=== PATIENT | male | born 1945 | race African-American/Black ===

== ENCOUNTER 2021-02-25 20:33 | Inpatient (IN) | payer OTHER ==
[2021-02-25] MEDS ORDERED: FUROSEMIDE 40 MG/4 ML VIAL ONE (21:43)
[2021-02-25 21:57] LABS: Absolute Lymphocytes (CBC) 0.7 K/uL (0.7-4.9); Basophils % 0.6 % (0-1.3); MPV 6.7 fL (7.6-11.3); RBC Red Blood Cell Count 4.35 M/uL (4.33-5.43)
[2021-02-25 21:59] LABS: Protime INR 1.18
--- NOTE | 2021-02-25 22:03 | RAD REPORT ---
EXAM DESCRIPTION: RAD - Chest Single View - 02/25/2021 9:45 pm CLINICAL HISTORY: Chest pain;SOB COMPARISON: No comparisons FINDINGS: Lines: None. Lungs: Diffuse prominence of the pulmonary interstitium P Pleural: No significant pleural effusions or pneumothorax. Cardiac: Cardiomegaly P Bones: No acute fractures. Other: IMPRESSION: Diffuse prominence of the pulmonary interstitium favored to represent edema, less likely multifocal pneumonia .
[2021-02-25 22:14] LABS: ALT/SGPT 56 U/L (12-78); AST/SGOT 31 U/L (15-37); Albumin 3.6 g/dL (3.4-5.0); Alkaline Phosphatase 111 U/L (45-117); BUN Blood Urea Nitrogen 32 mg/dL (7-18); Bicarbonate 31 mmol/L (21-32); Bilirubin Direct 0.3 mg/dL (0-0.2); Bilirubin Total 0.7 mg/dL (0.2-1.0); Glucose Level 108 mg/dL (74-106); Magnesium 2.5 mg/dL (1.8-2.4); NT PRO-BNP 1961 pg/mL (<450); Potassium 4.4 mmol/L (3.5-5.1); Sodium Level 144 mmol/L (136-145); Troponin (Emerg Dept Use Only) < 0.02 ng/mL (0.0-0.045)
[2021-02-25] MEDS ORDERED: ASPIRIN 81 MG CHEWABLE TABLET ONE (22:15)
--- NOTE | 2021-02-25 23:06 | EDPHYS ---
Physician Documentation [facility] Name: Sumeet Mohan Jr Age: 75 yrs Sex: Male : 1945 Arrival Date: 02/25/2021 Time: 20:39 Bed 18 Private MD: ED Physician Dylan Fernández HPI: 02/25 21:10 This 75 yrs old Black Male presents to ER via Wheelchair with complaints of Chest mh7 Tightness, Leg Swelling. 21:10 The patient or guardian reports chest pain that is located primarily in the substernal mh7 area. Onset: 1 week(s) ago. The pain does not radiate. Associated signs and symptoms: Pertinent positives: cough, lower extremity swelling, shortness of breath, Pertinent negatives: abdominal pain, diaphoresis, dizziness, headache, lower extremity pain, lightheadedness, nausea, near syncope, palpitations, recent travel, syncope, vomiting. The chest pain is described as Tightness. Duration: The patient or guardian reports multiple episodes, that are intermittent, that wax and wane, with no pattern. Modifying factors: The symptoms are alleviated by nothing. the symptoms are aggravated by activity, exertion. Severity of pain: At its worst the pain was moderate 5 day(s) ago, in the emergency department the pain has improved moderately. Historical: - Allergies: 20:53 No Known Allergies; wg - Immunization history:: Adult Immunizations up to date. - Social history:: Smoking status: Patient denies any tobacco usage or history of. ROS: 21:10 Eyes: Negative for injury, pain, redness, and discharge, ENT: Negative for injury, mh7 pain, and discharge, Neck: Negative for injury, pain, and swelling, Abdomen/GI: Negative for abdominal pain, nausea, vomiting, diarrhea, and constipation, Back: Negative for injury and pain, : Negative for injury, bleeding, discharge, and swelling, Skin: Negative for injury, rash, and discoloration, Neuro: Negative for headache, weakness, numbness, tingling, and seizure, Psych: Negative for depression, anxiety, suicide ideation, homicidal ideation, and hallucinations, Allergy/Immunology: Negative for hives, rash, and allergies, Endocrine: Negative for neck swelling, polydipsia, polyuria, polyphagia, and marked weight changes, Hematologic/Lymphatic: Negative for swollen nodes, abnormal bleeding, and unusual bruising. 21:10 Constitutional: Positive for fever, Subjective. Exam: 21:10 Constitutional: This is a well developed, well nourished patient who is awake, alert, mh7 and in no acute distress. Head/Face: Normocephalic, atraumatic. Eyes: Pupils equal round and reactive to light, extra-ocular motions intact. Lids and lashes normal. Conjunctiva and sclera are non-icteric and not injected. Cornea within normal limits. Periorbital areas with no swelling, redness, or edema. Neck: Trachea midline, no thyromegaly or masses palpated, and no cervical lymphadenopathy. Supple, full range of motion without nuchal rigidity, or vertebral point tenderness. No Meningismus. Chest/axilla: Normal chest wall appearance and motion. Nontender with no deformity. No lesions are appreciated. Cardiovascular: Regular rate and rhythm with a normal S1 and S2. No gallops, murmurs, or rubs. Normal PMI, no JVD. No pulse deficits. 21:10 Abdomen/GI: Soft, non-tender, with normal bowel sounds. No distension or tympany. No guarding or rebound. No evidence of tenderness throughout. Back: No spinal tenderness. No costovertebral tenderness. Full range of motion. Skin: Warm, dry with normal turgor. Normal color with no rashes, no lesions, and no evidence of cellulitis. 21:10 Neuro: Awake and alert, GCS 15, oriented to person, place, time, and situation. Cranial nerves II-XII grossly intact. Motor strength 5/5 in all extremities. Sensory grossly intact. Cerebellar exam normal. Normal gait. Psych: Awake, alert, with orientation to person, place and time. Behavior, mood, and affect are within normal limits. 21:10 Respiratory: mild respiratory distress is noted, Respirations: tachypnea, that is mild, Breath sounds: rales, that are moderate, are heard diffusely, rhonchi, that are mild, are scattered, Respiratory rate: 22 21:10 Musculoskeletal/extremity: Extremities: noted in the right leg and left leg: swelling, ROM: intact in all extremities, Circulation is intact in all extremities. Sensation intact. Compartment Syndrome exam of affected extremity: is normal. no pain, no numbness, no tingling, no sensation deficit, no palor, no weak pulses, Joints: All joints appear normal with full range of motion. Weight bearing: can bear weight with assistance only, uses cane, DVT Exam: no pain, no tenderness, negative Homans' sign noted on exam, no appreciated bluish discoloration, no erythema, no increased warmth, swelling. Vital Signs: 20:50 BP 138 / 90; Pulse 75; Resp 18; Temp 98.6; Pulse Ox 97% on R/A; Weight 127.01 kg; wg Height 5 ft. 8 in. (172.72 cm); Pain 0/10; 21:32 BP 135 / 75; Pulse 75; Resp 20; Pulse Ox 100% on 3 lpm NC; Pain 0/10; bc5 22:00 BP 140 / 77; Pulse 68; Resp 19; Pulse Ox 93% on 3 lpm NC; Pain 0/10; bc5 23:00 BP 125 / 85; Pulse 69; Resp 18; Pulse Ox 95% on 3 lpm NC; Pain 0/10; bc5 02/26 01:00 BP 111 / 66; Pulse 64; Resp 16; Pulse Ox 98% on 3 lpm NC; Pain 0/10; bc5 02/25 20:50 Body Mass Index 42.57 (127.01 kg, 172.72 cm) wg MDM: 02/25 23:01 Differential diagnosis: abnormal EKG, acute myocardial infarction, acute pericarditis, mh7 anxiety, coronary artery disease chest wall pain, congestive heart failure costochondritis, myocarditis, pneumonia, pneumothorax. HEART Score: History: Moderately Suspicious (1), ECG: Non specific repolarization disturbance / LBTB / PM (1), Age: > or = 65 years (2), Risk Factors: 1 or 2 risk factors (1), [Hypertension] Troponin: < or = 1 x Normal Limit (0), Total Score = 5. The patient was given aspirin in the Emergency Department. Data reviewed: vital signs, nurses notes, lab test result(s), cardiac enzymes, CBC, electrolytes, EKG, radiologic studies, plain films. Data interpreted: Pulse oximetry: on 2L(s) per nasal canula, is 97 %. Interpretation: acceptable. Counseling: I had a detailed discussion with the patient and/or guardian regarding: the historical points, exam findings, and any diagnostic results supporting the discharge/admit diagnosis, lab results, radiology results, the need for further work-up and treatment in the hospital, to return to the emergency department if symptoms worsen or persist or if there are any questions or concerns that arise at home. Response to treatment: the patient's symptoms have mildly improved after treatment. 23:06 Patient medically screened. [facility] 02/25 21:08 Order name: Basic Metabolic Panel; Complete Time: 22:44 [facility] 02/25 21:08 Order name: CBC with Diff; Complete Time: 22:44 [facility] 02/25 21:08 Order name: LFT's; Complete Time: 22:44 [facility] 02/25 21:08 Order name: Magnesium; Complete Time: 22:44 [facility] 02/25 21:08 Order name: NT PRO-BNP; Complete Time: 22:44 [facility] 02/25 21:08 Order name: PT-INR; Complete Time: 22:44 [facility] 02/25 21:08 Order name: Troponin (emerg Dept Use Only); Complete Time: 22:44 [facility] 02/25 21:08 Order name: XRAY Chest (1 view); Complete Time: 22:44 [facility] 02/25 21:09 Order name: US Extremity Venous W Compression Jorge Alberto [facility] 02/25 23:57 Order name: SARS-COV-2 RT PCR; Complete Time: 00:39 [facility] 02/25 21:08 Order name: EKG; Complete Time: 21:09 [facility] 02/25 21:08 Order name: Cardiac monitoring; Complete Time: 21:36 [facility] 02/25 21:08 Order name: EKG - Nurse/Tech; Complete Time: 21:37 [facility] 02/25 21:08 Order name: IV Saline Lock; Complete Time: 21:37 [facility] 02/25 21:08 Order name: Labs collected and sent; Complete Time: 21:37 [facility] 02/25 21:08 Order name: O2 Per Protocol; Complete Time: 21:37 [facility] 02/25 21:08 Order name: O2 Sat Monitoring; Complete Time: 21:37 [facility] Administered Medications: 21:36 Drug: Lasix (furosemide) 40 mg Route: IVP; Site: right antecubital; [facility] 02/26 01:23 Follow up: Urine output 1200 ml [facility] 02/25 21:54 Not Given (Patient Refused): morphine 2 mg IVP once; RASS on ADMIN: Combtv4, Very bc5 Agttd3, Agttd2, Rstlss1, AlertClm0, Drwsy-1, Lt Sdtn-2, Mod Sdtn-3, Dp Sdtn-4, UnArsble-5 21:54 Not Given (Patient Refused): Zofran (Ondansetron) 4 mg IVP once; over 2 minutes bc5 21:54 Drug: Aspirin Chewable Tablet 324 mg Route: PO; bc5 Disposition Summary: 02/25/21 23:06 Hospitalization Ordered Hospitalization Status: Inpatient Admission [facility] Provider: Frederic Amador [facility] Location: Telemetry/MedSur (Inpatient) [facility] Condition: Stable [facility] Problem: an acute exacerbation [facility] Symptoms: have improved [facility] Bed/Room Type: Standard [facility] Room Assignment: 209(02/26/21 00:22) Diagnosis - Unspecified combined systolic (congestive) and diastolic (congestive) heart failure [facility] Forms: - Medication Reconciliation Form [facility] - SBAR form [facility] Signatures: Dispatcher [employer] EDIL Jennifer Marmolejo RN RN Osvaldo Estrella, GAME DESIGNER/CREATIVE DIRECTOR-C GAME DESIGNER/CREATIVE DIRECTOR-Cla1 Dylan Fernández MD MD 7 Tim Husain RN Brittany Corea RN RN 5 Corrections: (The following items were deleted from the chart) 22:57 21:17 CORONAVIRUS+BRZ ordered. [facility] 02/26 00:22 02/25 23:06 [facility]
--- NOTE | 2021-02-25 23:06 | ER ---
Nurse's Notes [facility] Name: Sumeet Mohan Jr Age: 75 yrs Sex: Male : 1945 Arrival Date: 02/25/2021 Time: 20:39 Bed 18 Private MD: Diagnosis: Unspecified combined systolic (congestive) and diastolic (congestive) heart failure Presentation: 02/25 20:50 Chief complaint: Patient states: Pt states his legs have been swollen over the last few wg weeks. States they have been feeling warm to the touch and has a hx of blood clots. Pt denies SOB, CP, N/V, dizziness, Abd pain. Coronavirus screen: Vaccine status: Patient reports receiving the 2nd dose of the covid vaccine. Date December 2020 At this time, the client does not indicate any symptoms associated with coronavirus-19. Ebola Screen: Patient negative for fever greater than or equal to 101.5 degrees Fahrenheit, and additional compatible Ebola Virus Disease symptoms Patient denies exposure to infectious person. Patient denies travel to an Ebola-affected area in the 21 days before illness onset. No symptoms or risks identified at this time. Initial Sepsis Screen: Does the patient meet any 2 criteria? No. Patient's initial sepsis screen is negative. Does the patient have a suspected source of infection? No. Patient's initial sepsis screen is negative. Risk Assessment: Do you want to hurt yourself or someone else? Patient reports no desire to harm self or others. Onset of symptoms was February 08, 2021. 20:50 Method Of Arrival: Wheelchair wg 20:50 Acuity: SUNG 3 wg 21:35 Note Provider at bedside to discuss results. Pt states pain reduced to 4/10. Pt sitting df1 up in bed eating a sandwich. Triage Assessment: 20:53 General: Appears in no apparent distress. comfortable, obese, Behavior is calm, wg cooperative, appropriate for age. Pain: Denies pain. EENT: No deficits noted. Neuro: No deficits noted. Cardiovascular: No deficits noted. Respiratory: No deficits noted. GI: No deficits noted. : No deficits noted. Derm: edema to bilat legs. Historical: - Allergies: 20:53 No Known Allergies; wg - Immunization history:: Adult Immunizations up to date. - Social history:: Smoking status: Patient denies any tobacco usage or history of. Screenin:33 Abuse screen: Denies threats or abuse. Nutritional screening: No deficits noted. bc5 Tuberculosis screening: No symptoms or risk factors identified. Fall Risk IV access (20 points). Ambulatory Aid- Crutches/Cane/Walker (15 pts). Gait- Normal/Bed Rest/Wheelchair (0 pts) Mental Status- Oriented to own ability (0 pts). Assessment: 21:30 Reassessment: Pt reports swelling to legs "they blow up then goown, they blow up the go bc5 down but this time they stayed big so I thought I should come in" Pt reports SOB with exertion. Denies CP, dizziness at this time. A\\T\\O x 3, RR is even and unlabored, speaking in clear and complete sentences a this time. Pain: Denies pain. 21:35 Pain: Denies pain. bc5 21:36 Pain: bc5 21:39 Pain: Pain began gradually. bc5 Vital Signs: 20:50 BP 138 / 90; Pulse 75; Resp 18; Temp 98.6; Pulse Ox 97% on R/A; Weight 127.01 kg; wg Height 5 ft. 8 in. (172.72 cm); Pain 0/10; 21:32 BP 135 / 75; Pulse 75; Resp 20; Pulse Ox 100% on 3 lpm NC; Pain 0/10; bc5 22:00 BP 140 / 77; Pulse 68; Resp 19; Pulse Ox 93% on 3 lpm NC; Pain 0/10; bc5 23:00 BP 125 / 85; Pulse 69; Resp 18; Pulse Ox 95% on 3 lpm NC; Pain 0/10; bc5 02/26 01:00 BP 111 / 66; Pulse 64; Resp 16; Pulse Ox 98% on 3 lpm NC; Pain 0/10; bc5 02/25 20:50 Body Mass Index 42.57 (127.01 kg, 172.72 cm) ED Course: 02/25 20:39 Patient arrived in ED. bp1 20:53 Triage completed. wg 20:53 Arm band placed on left wrist. wg 20:57 Dylan Fernández MD is Attending Physician. 7 21:30 Brittany Corea RN is Primary Nurse. bc5 21:34 Patient has correct armband on for positive identification. Fall risk band placed. bc5 Placed in gown. Bed in low position. Call light in reach. Side rails up X2. reservation clerk on. Pulse ox on. NIBP on. 21:35 Inserted saline lock: 20 gauge in right antecubital area, using aseptic technique. bc5 Oxygen administration via nasal cannula \\T\\ 3L/min. 21:37 Basic Metabolic Panel Sent. bc5 21:37 CBC with Diff Sent. bc5 21:37 LFT's Sent. bc5 21:37 Magnesium Sent. bc5 21:37 NT PRO-BNP Sent. bc5 21:37 PT-INR Sent. bc5 21:37 Troponin (emerg Dept Use Only) Sent. bc5 21:39 No provider procedures requiring assistance completed. bc5 21:46 XRAY Chest (1 view) In Process Unspecified. EDMS 22:47 US Extremity Venous W Compression Jorge Alberto In Process Unspecified. EDMS 23:05 Frederic Amador MD is Hospitalizing Provider. [facility] Administered Medications: 21:36 Drug: Lasix (furosemide) 40 mg Route: IVP; Site: right antecubital; [facility] 02/26 01:23 Follow up: Urine output [address] [facility] 02/25 21:54 Not Given (Patient Refused): morphine 2 mg IVP once; RASS on ADMIN: Combtv4, Very bc5 Agttd3, Agttd2, Rstlss1, AlertClm0, Drwsy-1, Lt Sdtn-2, Mod Sdtn-3, Dp Sdtn-4, UnArsble-5 21:54 Not Given (Patient Refused): Zofran (Ondansetron) 4 mg IVP once; over [address] [facility] 21:54 Drug: Aspirin Chewable Tablet 324 mg Route: PO; [facility] Output: 02/26 01:23 Urine: 1200ml; Total: 1200ml. [facility] Outcome: 02/25 23:06 Decision to Hospitalize by Provider. [facility] 02/26 01:[address] [facility] Signatures: Dispatcher [employer] EDMS Alta Santiago Maurice, MD MD 7 Tim Husain, MONA Brittany Corea RN RN 5 Heidy Valladares df1
--- NOTE | 2021-02-26 00:23 | P.HP ---
Certification for Inpatient Patient admitted to: Inpatient With expected LOS: >2 Midnights Patient will require the following post-hospital care: None Practitioner: I am a practitioner with admitting privileges, knowledge of patient current condition, hospital course, and medical plan of care. Services: Services provided to patient in accordance with Admission requirements found in Title 42 Section 412.3 of the Code of Federal Regulations Patient History Date of Service: 02/25/21 Primary Care Provider: SHAMA Reason for admission: CHF exacerbation History of Present Illness: 75-year-old -Micron[place] male with history of congestive heart failureunknown ejection fraction, hypertension, hyperlipidemia, history of prostate cancer presents emergency department for swelling of the lower extremities. Patient reports increasing swelling over the course of the last few days with associated shortness of breath. Patient admits to taking Lasix 20 mg p.o. twice daily at home for many years now. Patient was evaluated in the emergency department labs are significant for creatinine 1.51 GFR 55 glucose 108 magnesium 2.5 BNP 1962 chest x-ray with diffuse prominence of the pulmonary interstitium favored to be edema, patient with 2+ pitting edema bilateral lower extremities DVT study negative bilaterally. Patient does not know his medications[facility] ED provider wishes to admit for CHF exacerbation, dyspnea, hypoxia. Patient saturating in the 80s on room air currently on 2 L per nasal cannula saturating 95% - Past Medical/Surgical History -: CHFunknown EF -: Hypertension -: Hyperlipidemia -: Prostate cancer 2012 -: Right hip surgery -: Retinal detachment -: Pneumothorax Psychosocial/ Personal History: Patient lives at home with his - Family History Mother -: Diabetes Father -: Cancer Sister -: Cancer - Social History Smoking Status: Never smoker Alcohol use: No CD- Drugs: No Caffeine use: Yes Review of Systems 10-point ROS is otherwise unremarkable Respiratory: Cough, Shortness of Breath Cardiovascular: Edema Physical Examination - Physical Exam General: Alert, In no apparent distress, Oriented x3 HEENT: Atraumatic, PERRLA, Mucous membr. moist/pink, EOMI, Sclerae nonicteric Neck: Supple, 2+ carotid pulse no bruit, No LAD, Without JVD or thyroid abnormality Respiratory: Crackles/rales Cardiovascular: No edema, Regular rate/rhythm, Normal S1 S2 Gastrointestinal: Normal bowel sounds, No tenderness Musculoskeletal: No tenderness Integumentary: No rashes Neurological: Normal gait, Normal speech, Normal strength at 5/5 x4 extr, Normal tone, Normal affect Lymphatics: No axilla or inguinal lymphadenopathy - Studies Laboratory Data (last 24 hrs) 02/25/21 21:25: PT 13.6 H, INR 1.18 02/25/21 21:25: WBC 5.20, Hgb 11.5 L, Hct 37.0 L, Plt Count 189 02/25/21 21:25: Sodium 144, Potassium 4.4, BUN 32 H, Creatinine 1.51 H, Glucose 108 H, Magnesium 2.5 H, Total Bilirubin 0.7, AST 31, ALT 56, Alkaline Phosphatase 111 Assessment and Plan - Plan Assessment: Dyspnea, hypoxia, pulmonary edema secondary to acute on chronic congestive heart failureunknown EF Hypertension Hyperlipidemia Renal insufficiency BPH Plan: Dyspnea, hypoxia, pulmonary edema secondary to acute on chronic congestive heart failureunknown EF: No echocardiogram available for review, patient reports he takes Lasix 20 g p.o. twice daily at home. Will place patient on Lasix 40 mg IV 3 times daily, echocardiogram ordered, cardiology consult in place. Patient wi ll need to be weaned off oxygen anticipate clinical improvement over the course next 48-72 hours. Patient not sure what his medications are we will need to obtain and verify. 1500 cc/day fluid restriction, daily weights. Hypertension: Obtain and verify home medications, restart as appropriate Hyperlipidemia: Obtain and verify home meds Renal insufficiency: Unknown baseline current creatinine 1.5 likely similar to patient's baseline possible CHAVEZ with CRS will recheck with daily labs. Consult nephrology as necessary. BPH: Obtain and continue medications. Patient with history of prostate cancer 2012 with radiation. Patient able to urinate without difficulty at this time. DVT PPX: Lovenox Code status: Full Discharge Plan: Home Plan to discharge in: 48 Hours - Advance Directives Does patient have a Living Will: No Does patient have a Durable POA for Healthcare: No - Code Status/Comfort Care Code Status Assessed: Yes (FC) Critical Care: No Time Spent Managing Pts Care (In Minutes): 55
[2021-02-26] MEDS ORDERED: ONDANSETRON 4 MG/2 ML VIAL IV PRN (01:17)
[2021-02-26 01:59] VITALS: BMI 42.5
[2021-02-26] MEDS: FUROSEMIDE 40 MG/4 ML VIAL IV SCH ×3 (02:45→17:33)
[2021-02-26 03:21] LABS: Urine Appearance CLEAR (Clear); Urine Bilirubin NEGATIVE (Negative); Urine Blood NEGATIVE (Negative); Urine Color YELLOW (Yellow); Urine Glucose NEGATIVE (Negative); Urine Protein NEGATIVE (Negative); Urine Specific Gravity <=1.005 (1.005-1.030); Urine Urobilinogen 0.2 mg/dL (0.2-1.0)
[2021-02-26 03:40] LABS: Urine Microscopic Reflex ORDER UMIC
[2021-02-26 04:03] LABS: Urine Bacteria 20-50 /HPF (NONE SEEN); Urine RBC <5 /HPF (NONE SEEN)
[2021-02-26 06:01] LABS: Absolute Lymphocytes (CBC) 0.8 K/uL (0.7-4.9); Basophils % 0.6 % (0-1.3); Lymphocytes % 14.1 % (15.3-44.8); RBC Red Blood Cell Count 4.16 M/uL (4.33-5.43)
--- NOTE | 2021-02-26 06:14 | P.PN ---
Subjective Date of Service: 02/26/21 Primary Care Provider: SHAMA Chief Complaint: CHF exacerbation Subjective: Improving (Feeling slightly better this morning, denies chest pain, denies dysuria, no change in urinary habits) Review of Systems 10-point ROS is otherwise unremarkable Physical Examination - Vital Signs Temperature: 97 F Blood Pressure: 103/60 Pulse: 74 Respirations: 20 Pulse Ox (%): 100 - Studies Laboratory Data (last 24 hrs) 02/25/21 21:25: PT 13.6 H, INR 1.18 02/25/21 21:25: WBC 5.20, Hgb 11.5 L, Hct 37.0 L, Plt Count 189 02/25/21 21:25: Sodium 144, Potassium 4.4, BUN 32 H, Creatinine 1.51 H, Glucose 108 H, Magnesium 2.5 H, Total Bilirubin 0.7, AST 31, ALT 56, Alkaline Phosphatase 111 Assessment & Plan Physician Review Additional Text: Physical exam GEN: Alert, oriented x3, NAD HEENT: Normal conjunctiva, sclera anicteric CV: Regular rate and rhythm, 2+ b/l lower extremity edema to thighs Pulm: mild b/l crackles and diminished at bases bilaterally, nonlabored respirations on 3L NC ABD: Soft, nontender, nondistended MSK: No joint tenderness Integumentary: No rashes Problem List Dyspnea, hypoxia, pulmonary edema secondary to acute on chronic congestive heart failureunknown EF Hypertension Hyperlipidemia CHAVEZ, possible CKD, unknown h/o prostate cancer s/p radiation (2012) continue IV lasix 40mg TID, takes 20mg PO BID at home echo ordered cardiology consulted wean O2 as tolerated; pt reports needing home O2 for several weeks "many years ago". denies any current kidney issues, however states he did take too much ibuprofen and had acute renal insufficiency >10 years ago Nephrology consulted obtain/verify home meds and restart as appropriate DVT PPX: Lovenox Code: Full Dispo: anticipate dc home in ~2-3 days Time Spent Managing Pts Care (In Minutes): 35
[2021-02-26 06:40] LABS: ALT/SGPT 51 U/L (12-78); AST/SGOT 27 U/L (15-37); Albumin 3.3 g/dL (3.4-5.0); Alkaline Phosphatase 103 U/L (45-117); BUN Blood Urea Nitrogen 29 mg/dL (7-18); Bicarbonate 36 mmol/L (21-32); Bilirubin Total 0.6 mg/dL (0.2-1.0); Glucose Level 90 mg/dL (74-106); HDL Cholesterol 55 mg/dL (40-60); LDL Cholesterol, Calculated 56 (<130); Magnesium 2.5 mg/dL (1.8-2.4); Potassium 4.7 mmol/L (3.5-5.1); Protein, Total 7.7 g/dL (6.4-8.2); Sodium Level 144 mmol/L (136-145); Thyroid Stimulating Hormone 0.708 uIU/mL (0.360-3.740); Troponin I < 0.02 ng/mL (0.0-0.045)
--- NOTE | 2021-02-26 07:26 | RAD REPORT ---
EXAM DESCRIPTION: US - Extrem Venous W Compress Jorge Alberto - 02/25/2021 10:47 pm CLINICAL HISTORY: Swelling COMPARISON: None. TECHNIQUE: Real-time sonographic evaluation of the bilateral lower extremity deep venous systems was performed. FINDINGS: Normal compressibility, flow augmentation, phasic flow and spontaneous flow is identified in both the left and right lower extremity deep venous systems. No intraluminal filling defects seen. IMPRESSION: No DVT in either lower extremity.
--- NOTE | 2021-02-26 08:15 | EKG ---
Test Date: 2021-02-25 Test Time: 21:28:54 Gluing Machine Feeder: YAHAIRA MEASUREMENT RESULTS: Intervals: Rate: 72 WV: 160 QRSD: 88 QT: 548 QTc: 600 Dante: P: 45 WV: 160 QRS: -60 T: 22 INTERPRETIVE STATEMENTS: Sinus rhythm with premature supraventricular complexes with occasional and consecutive premature ventricular complexes and fusi Left axis deviation Nonspecific ST abnormality Prolonged QT Abnormal ECG No previous ECG available for comparison Electronically Signed On 02-26-21 08:14:11 CDT by Dale Bee
[2021-02-26] MEDS: ENOXAPARIN 40 MG/0.4 ML SQ SCH (08:44)
[2021-02-26] MEDS: ASPIRIN EC 81 MG TAB PO SCH (08:44)
--- NOTE | 2021-02-26 13:56 | CON ---
Date of Consultation: 02/26/2021 Additional Consulting Physician: Frederic Amador. Reason For Consultation: Elevated BUN, creatinine for volume. History Of Present Illness: This is a pleasant 75-year-old gentleman with significant past medical history of hypertension, congestive heart failure. No CAD as by the patient. Questionable of chronic kidney disease, status post acute kidney injury secondary to nonsteroid almost 10 years back, recovered according to the patient. Patient was in his regular state of health. Patient according to him, he had DVT before and at that time, he was treated. At this time, patient started having increased leg swelling, more prominent on the right leg with some shortness of breath. For that reason, he reported to the hospital. Upon arrival to the hospital, found to have creatinine of 1.6 with low GFR and anasarca. For that reason, we have been consulted over the night. We started the patient on aggressive diuresis. Patient's shortness of breath still persists, edema has been subsided. Kidney function marginal improvement from 1.5 to 1.4. Past Medical History: Include: 1. CHF, nonischemic. 2. Hypertension. 3. Chronic kidney disease. 4. Prostate cancer. Past Surgical History: Includes right hip surgery, retinal detachment, pneumothorax. Family History: Positive for diabetes and hypertension. Social History: Denies smoking. Denies drinking. Denies drug abuse. Allergies: NO KNOWN DRUGS ALLERGY. Review of Systems: Head and Neck: No red eye. No ear pain. GI: No nausea, no vomiting. : No polyuria, no dysuria, no hematuria. Carbon Brushes Assembler: Not applicable. Respiratory: Has shortness of breath. Cardiovascular: Has orthopnea 2 pillows. Has leg swelling. Endocrine: No polydipsia. Skin: No rash. Neuro: Has low back pain. Musculoskeletal: Leg pain, especially on the right. Physical Examination: Vital Signs: When I saw the patient; blood pressure 100/58, pulse of 79, afebrile. Patient had 1700 of urine output. Chest: Crackles bilateral. Heart: S1, S2. Systolic murmur. Abdomen: Soft, nontender. Extremities: +2 edema. Neurologic: Alert. No focality. Laboratory Data: Chest x-ray; cardiomegaly with congestion bilateral. DVT study was negative for lower extremity. Sodium 144, potassium 4.7, bicarb 36, BUN 29, creatinine 1.4. GFR of 55. Calcium 8.8. Magnesium 2.5. Albumin 3.3. Corrected calcium is 9.5. Urinalysis, wbc's of 10, specific gravity 1.005. Negative for protein. Current Medications: The patient on include: 1. Aspirin. 2. Lovenox. 3. Lasix 40 every 8 hours. 4. Zofran. Assessment And Plan: 1. Acute kidney injury on chronic kidney disease, mostly secondary to cardiorenal, still currently overvolume. I am going to continue diuresing the patient. We will obtain renal ultrasound and we will send for PTH to evaluate the chronicity of the disease. Continue Lasix 40 mg t.i.d. 2. Anasarca, mostly secondary to cardiorenal. TSH within normal limit. We will send for PC ratio. Follow up echocardiogram. 3. Hypertension, currently controlled, optimal on the lower side. We will try to utilize the blood pressure for more diuresis. 4. Congestive heart failure as above. We will follow up echocardiogram given the current kidney function and overvolume. If echocardiogram is within normal limits, we will follow up ultrasound on the renal to evaluate if there is any renal artery stenosis, even I doubt it given the low blood pressure currently. 5. Hyponatremia, marginal. We will follow up. Thank you Dr. Amador for allowing us to participate in the care of your patient. Time spent examining the patient [id number] placing order discussing with the patient reviewing data discussing the case with all of our subspecialty including hospitalist 65 minutes TONI Voice ID: [id number] Report ID: [id number] SUNIL
--- NOTE | 2021-02-26 14:38 | EKG ---
Test Date: 2021-02-25 Test Time: 21:32:58 [place] Technician: YAHAIRA MEASUREMENT RESULTS: Intervals: Rate: 75 ND: 154 QRSD: 92 QT: 440 QTc: 491 [place]: P: 69 ND: 154 QRS: -56 T: 31 INTERPRETIVE STATEMENTS: Sinus rhythm with marked sinus arrhythmia Left anterior fascicular block Septal infarct, age undetermined Abnormal ECG Compared to ECG 02/25/2021 21:28:54 Left anterior fascicular block now present Myocardial infarct finding now present Atrial premature complex(es) no longer present Ventricular premature complex(es) no longer present Left-axis deviation no longer present ST (T wave) deviation no longer present Prolonged QT interval no longer present Electronically Signed On 02-26-21 14:38:24 CDT by Dale Bee
[2021-02-26 16:05] LABS: UR PROTEIN 6.8 mg/dL (<11.9); Urine Protein/Creatinine Ratio 0.14 ratio (<0.15)
--- NOTE | 2021-02-26 16:18 | ECHO ---
HEIGHT: 5 ft 8 in WEIGHT: 280 lb 3.2 oz DATE OF STUDY: 02/26/[address]: Osvaldo Estrella NP 2-DIMENSIONAL: YES M.MODE: YES DOPPLER: YES COLOR FLOW: YES TDS: YES PORTABLE: NO DEFINITY: NO BUBBLE STUDY: NO DIAGNOSIS: CONGESTIVE HEART FAILURE, DYSPNEA, HYPOXIA CARDIAC HISTORY: CATHERIZATION: NO SURGERY: NO PROSTHETIC VALVE: NO PACEMAKER: NO MEASUREMENTS (cm) DIASTOLIC (NORMALS) SYSTOLIC (NORMALS) IVSd 0.9 (0.6-1.2) LA Diam 2.9 (1.9-4.0) LVEF 51% LVIDd 3.9 (3.5-5.7) LVIDs 2.9 (2.0-3.5) %FS 26% LVPWd 0.9 (0.6-1.2) Ao Diam 3.1 (2.0-3.7) 2 DIMENSIONAL ASSESSMENT: RIGHT ATRIUM: NORMAL LEFT ATRIUM: NORMAL RIGHT VENTRICLE: NORMAL LEFT VENTRICLE: NORMAL TRICUSPID VALVE: NORMAL MITRAL VALVE: NORMAL PULMONIC VALVE: NORMAL AORTIC VALVE: NORMAL PERICARDIAL EFFUSION: NONE AORTIC ROOT: NORMAL LEFT VENTRICULAR WALL MOTION: NORMAL DOPPLER/COLOR FLOW: MILD TRICUSPID REGURGITATION. COMMENTS: TECHNICALLY DIFFICULT STUDY. MILD TRICUSPID REGURGITATION. NORMAL LEFT VENTRICULAR SIZE AND FUNCTION. NO EFFUSION. TECHNOLOGIST: Janel SANCHEZ
--- NOTE | 2021-02-26 19:03 | RAD REPORT ---
EXAM DESCRIPTION: US - Renal Ultrasound-Complete - 02/26/2021 6:21 pm CLINICAL HISTORY: CHAVEZ Flank pain COMPARISON: No comparisons FINDINGS: Both kidneys are normal in size, shape and echotexture. The right kidney measures 11.3 x 4.6 x 3.1 cm. No hydronephrosis, focal mass or perinephric fluid. Be nign cysts noted. The left kidney measures 11.5 x 6.4 x 3.9 cm. No hydronephrosis, focal mass or perinephric fluid. Trell ign cysts are present, largest measuring 6 cm. The urinary bladder is incompletely distended without gross abnormality seen. IMPRESSION: Benign bilateral renal cysts, otherwise negative study.
[2021-02-27] MEDS: FUROSEMIDE 40 MG/4 ML VIAL IV SCH ×2 (00:56→09:46)
--- NOTE | 2021-02-27 06:21 | P.PN ---
Subjective Date of Service: 02/27/21 Primary Care Provider: SHAMA Chief Complaint: CHF exacerbation Subjective: Improving (Breathing more comfortably, swelling improving) Review of Systems 10-point ROS is otherwise unremarkable Physical Examination - Vital Signs Temperature: 97.6 F Blood Pressure: 123/56 Pulse: 83 Respirations: 18 Pulse Ox (%): 96 Assessment & Plan Physician Review Additional Text: Physical exam GEN: Alert, oriented x3, NAD HEENT: Normal conjunctiva, sclera anicteric CV: Regular rate and rhythm, 2+ b/l lower extremity edema to knees Pulm: mild b/l crackles and diminished at bases bilaterally, nonlabored respirations on 3L NC ABD: Soft, nontender, nondistended MSK: No joint tenderness Integumentary: No rashes Problem List Dyspnea, hypoxia, pulmonary edema secondary to acute on chronic congestive heart failureunknown EF Hypertension Hyperlipidemia CHAVEZ, possible CKD, unknown h/o prostate cancer s/p radiation (2012) Bacteriuria, possible acute cystitis continue IV lasix 40mg TID, takes 20mg PO BID at home echo ordered: Poor study, EF 50%, unable to fully evaluate cardiology consulted wean O2 as tolerated; pt reports needing home O2 for several weeks "many years ago". denies any current kidney issues, however states he did take too much ibuprofen and had acute renal insufficiency >10 years ago Nephrology consulted, renal function slowly improving obtain/verify home meds and restart as appropriate Bacteriuria noted on UA, patient denied any urinary symptoms, other than may be urinating more than usual, but has been going on for weeks. Afebrile, no leukocytosis. Urine culture growing GNR >100k CFU start rocephin DVT PPX: Lovenox Code: Full Dispo: anticipate dc home in ~1-2 days May need home O2 Time Spent Managing Pts Care (In Minutes): 40
[2021-02-27 07:20] LABS: Hematocrit 35.5 % (39.6-49.0); MPV 6.3 fL (7.6-11.3); RBC Red Blood Cell Count 4.21 M/uL (4.33-5.43)
[2021-02-27 07:21] LABS: Absolute Lymphocytes (CBC) 0.8 K/uL (0.7-4.9); Basophils % 0.8 % (0-1.3)
[2021-02-27 07:42] LABS: Albumin 3.2 g/dL (3.4-5.0); Bilirubin Total 0.8 mg/dL (0.2-1.0); Magnesium 2.2 mg/dL (1.8-2.4); Phosphorus 3.5 mg/dL (2.5-4.9); Potassium 4.1 mmol/L (3.5-5.1); Protein, Total 7.6 g/dL (6.4-8.2); Uric Acid 13.4 mg/dL (3.5-7.2)
[2021-02-27] MEDS ORDERED: CEFTRIAXONE 1 GM/NS 50 ML 1 GM/50 ML BAG IV SCH (09:00)
[2021-02-27] MEDS: ASPIRIN EC 81 MG TAB PO SCH (09:46)
[2021-02-27] MEDS: CEFTRIAXONE/SWI 1gm 1 GM/10 ML SYR IV SCH (09:46)
[2021-02-27] MEDS: ENOXAPARIN 40 MG/0.4 ML SQ SCH (09:46)
[2021-02-27] MEDS: ACETAMINOPHEN 500 MG TAB PO PRN (09:52)
--- NOTE | 2021-02-27 18:13 | PN ---
Date of Progress Note: 02/27/2021 Subjective: The patient was admitted with acute kidney injury secondary to cardiorenal over volume anasarca. The patient was started on diuresis. His leg swelling is slightly better, still requiring oxygenation. Objective: Vital Signs: Blood pressure 100/51, pulse of 73, afebrile. The patient had good urine output of 3900, negative of 3200 as weight mena the patient stay the same. Again, this is lost weight. Chest: Crackles bilateral. Heart: S1-S2, systolic murmur. Abdomen: Soft, nontender. Extremities: A +1 edema more prominent on the right side. Neurological: Alert, oriented x3, nonfocal. Laboratory Data: Chest x-ray; cardiomegaly with congestion. Renal ultrasound . with renal cyst. Echocardiogram, ejection fraction of 51%. Current Medications: The patient on include aspirin, ceftriaxone, Lovenox, Lasix 40 t.i.d. Assessment And Plan: 1. Acute kidney injury, normal size kidney secondary to cardiorenal responding to current dose of Lasix. I am going to go ahead and switch the Lasix to oral. We will change it to 80 mg b.i.d. and we will follow up the patient closely. 2. Hypertension. We will keep utilizing blood pressure for more diuresis. 3. Renal cyst, simple. We will monitor. 4. Anasarca and leg swelling secondary to cardiorenal responding to current diuresis regimen. Continue fluid restriction for the patient of 1200 and we will change Lasix to oral. 5. 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 Calcium and phosphorus on the goal. I do not see the need for any treatment. We will repeat PTH as outpatient. 6. Congestive heart failure. Followup with Cardiology. We will optimize the fluid status. Time spent examining the patient [id number] placing order discussing with the patient reviewing data discussing the case with all of our subspecialty including hospitalist 35 minutes TONI Voice ID: [id number] Report ID: [id number] SUNIL
--- NOTE | 2021-02-27 20:34 | CON ---
Date of Consultation: 02/27/2021 Reason For Consultation: CHF. History Of Present Illness: This is a 75-year-old male with history of CHF, hypertension, dyslipidem ia, prostate cancer, presents with significant lower extremity edema and shortness of breath for few days. Taken 20 mg of Lasix twice a day with no significant response. Denies having any chest pain. At the present time feels better. Breathing is significantly better but still has significant edema . Past Medical History: CHF, hypertension, dyslipidemia, prostate cancer. Past Surgical History: Hip surgery. Pneumothorax intervention. Medications: Refer reconciliation sheet for detailed list. Allergies: NO KNOWN DRUG ALLERGIES REPORTED. Family History: No premature coronary artery disease or cancer. Social History: Does not smoke or drink. Does not use any drugs. Review of Systems: All systems reviewed and they were negative except as mentioned in the HPI. Physical Examination: Vital Signs: Temperature is 97.6, pulse 83, breathing 18, blood pressure 123/56, saturating 96%. General: A pleasant elderly male, in no apparent distress. Head and Neck: Pupils are equal, reactive to light. Intact eye movements. Mild JVD elevation. Neck: Supple. Thyroid is not enlarged. Lungs: Mild crackles in the bases. No accessory muscle use with retraction. Heart: Regular. No extra sounds. Abdomen: Soft, nontender. Bowel sounds positive. No organomegaly. No masses or hernia. No rigidi ty or rebound. Extremities: 4+ pedal edema. Bilateral clubbing, cyanosis. Intact pulses. Skin: No rashes. Neurologic: Alert, awake, oriented x3. No acute focal deficits appreciated. Lymph nodes: No cervi spencer lymphadenopathy. Investigations: Creatinine is 1.37, down from 1.51. Troponin is less than 0.02. Venous Doppler in lower extremity, no DVT. Assessment And Recommendations: Acute on chronic congestive heart failure exacerbation likely diasto lic dysfunction as he had recent echo with what appears to be normal ejection fraction, but was a raymond ited study. The patient's troponins are negative. I agree with IV diuretics, Lasix 80 mg q.12 hours and creatinine continues to improve. I would switch it to 40 mg q.8 hours tomorrow and transitionin g him to take oral medications. Low-salt diet and fluid restriction to less than 2 L per day and fol low up closely, BUN, creatinine. SR/MODL Voice ID: [id number] Report ID: [id number]
[2021-02-27] MEDS: FUROSEMIDE 40 MG TABLET PO SCH (21:11)
--- NOTE | 2021-02-28 05:56 | P.PN ---
Subjective Date of Service: 02/28/21 Primary Care Provider: SHAMA Chief Complaint: CHF exacerbation Subjective: Improving (Patient reports improvement in swelling and breathing, on 2 L nasal cannula) Review of Systems 10-point ROS is otherwise unremarkable Physical Examination - Vital Signs Temperature: 98.0 F Blood Pressure: 119/54 Pulse: 84 Respirations: 18 Pulse Ox (%): 97 Assessment & Plan Physician Review Additional Text: Physical exam GEN: Alert, oriented x3, NAD HEENT: Normal conjunctiva, sclera anicteric CV: Regular rate and rhythm, 1+ b/l lower extremity edema to knees Pulm: diminished at bases bilaterally, nonlabored respirations on 2L NC ABD: Soft, nontender, nondistended MSK: No joint tenderness Integumentary: No rashes Problem List Dyspnea, hypoxia, pulmonary edema secondary to acute on chronic congestive heart failureunknown EF Hypertension Hyperlipidemia CHAVEZ, possible CKD, unknown h/o prostate cancer s/p radiation (2012) Bacteriuria, acute cystitis continue IV lasix 40mg TID, takes 20mg PO BID at home echo ordered: Poor study, EF 50%, unable to fully evaluate cardiology consulted wean O2 as tolerated; pt reports needing home O2 for several weeks "many years ago". denies any current kidney issues, however states he did take too much ibuprofen and had acute renal insufficiency >10 years ago Nephrology consulted, renal function slowly improving with diuresis obtain/verify home meds and restart as appropriate Bacteriuria noted on UA, patient denied any urinary symptoms, other than may be urinating more than usual, but has been going on for weeks. Afebrile, no leukocytosis. Urine culture growing GNR >100k CFU, awaiting final start rocephin DVT PPX: Lovenox Code: Full Dispo: anticipate dc home in ~1 day May need home O2 Time Spent Managing Pts Care (In Minutes): 35
[2021-02-28 06:10] LABS: Absolute Lymphocytes (CBC) 0.9 K/uL (0.7-4.9); Basophils % 0.8 % (0-1.3); Hematocrit 37.8 % (39.6-49.0); Lymphocytes % 12.4 % (15.3-44.8); MPV 6.8 fL (7.6-11.3); RBC Red Blood Cell Count 4.49 M/uL (4.33-5.43)
[2021-02-28 06:25] LABS: Albumin 3.1 g/dL (3.4-5.0); Bilirubin Total 0.8 mg/dL (0.2-1.0); Magnesium 2.3 mg/dL (1.8-2.4); Phosphorus 3.4 mg/dL (2.5-4.9); Potassium 4.3 mmol/L (3.5-5.1); Protein, Total 7.8 g/dL (6.4-8.2)
[2021-02-28] MEDS: CEFTRIAXONE/SWI 1gm 1 GM/10 ML SYR IV SCH (09:10)
[2021-02-28] MEDS: FUROSEMIDE 40 MG TABLET PO SCH ×2 (09:11→21:00)
[2021-02-28] MEDS: ASPIRIN EC 81 MG TAB PO SCH (09:11)
[2021-02-28] MEDS: ENOXAPARIN 40 MG/0.4 ML SQ SCH (09:11)
--- NOTE | 2021-02-28 09:56 | P.PN ---
Subjective Date of Service: 02/28/21 Primary Care Provider: SHAMA Chief Complaint: CHF exacerbation Subjective: Other (no complaints of increased shortness of breath.) Physical Examination - Vital Signs Temperature: 98 F Blood Pressure: 122/67 Pulse: 85 Respirations: 14 Pulse Ox (%): 97 - Physical Exam General: Other (appears as his stated age) HEENT: Atraumatic, Normocephalic Neck: Supple Respiratory: Other (symmetric chest expansion) Cardiovascular: Edema Gastrointestinal: Soft and benign Musculoskeletal: No clubbing Integumentary: No warmth Neurological: Normal speech, Normal tone Urinary: Other (no bladder distention) Assessment And Plan - Plan 1. Acute kidney injury, secondary to cardiorenal syndrome type I. Renal function improving. renal ultrasound unremarkable. Continue diuretics as below. Monitor renal panel. Monitor input and output. 2. Acute decompensated heart failure. Improving. BNP significantly elevated. Troponin negative.TTE on 02/26/2010 1 is unremarkable. Continue Lasix 80 mg by mouth twice a day. Monitor daily weight. low-salt diet. 3. metabolic alkalosis. Give Diamox 250 mg IV twice a day 3 doses. 4. Hypertension. continue current regimen.l. 5. 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 monitor calcium and phosphorus. 6. disposition. Anticipate DC tomorrow. Physician Review Additional Text: Physical exam GEN: Alert, oriented x3, NAD HEENT: Normal conjunctiva, sclera anicteric CV: Regular rate and rhythm, 2+ b/l lower extremity edema to knees Pulm: mild b/l crackles and diminished at bases bilaterally, nonlabored respirations on 3L NC ABD: Soft, nontender, nondistended MSK: No joint tenderness Integumentary: No rashes Problem List Dyspnea, hypoxia, pulmonary edema secondary to acute on chronic congestive heart failureunknown EF Hypertension Hyperlipidemia CHAVEZ, possible CKD, unknown h/o prostate cancer s/p radiation (2012) Bacteriuria, possible acute cystitis continue IV lasix 40mg TID, takes 20mg PO BID at home echo ordered: Poor study, EF 50%, unable to fully evaluate cardiology consulted wean O2 as tolerated; pt reports needing home O2 for several weeks "many years ago". denies any current kidney issues, however states he did take too much ibuprofen and had acute renal insufficiency >10 years ago Nephrology consulted, renal function slowly improving obtain/verify home meds and restart as appropriate Bacteriuria noted on UA, patient denied any urinary symptoms, other than may be urinating more than usual, but has been going on for weeks. Afebrile, no leukocytosis. Urine culture growing GNR >100k CFU start rocephin DVT PPX: Lovenox Code: Full Dispo: anticipate dc home in ~1-2 days May need home O2
[2021-02-28] MEDS ORDERED: ALBUTEROL INHALER 60 PUFF/8 GM IH PRN (10:40)
[2021-02-28] MEDS ORDERED: METHYL SALICYLATE/MENTHOL 3 OZ TUBE TOP PRN (11:00)
[2021-02-28] MEDS: ACETAZOLAMIDE 500 MG IV IV SCH ×2 (15:07→21:00)
[2021-03-01 05:52] LABS: Absolute Lymphocytes (CBC) 0.7 K/uL (0.7-4.9); Basophils % 0.4 % (0-1.3); Lymphocytes % 7.5 % (15.3-44.8); MPV 6.3 fL (7.6-11.3); RBC Red Blood Cell Count 4.06 M/uL (4.33-5.43)
[2021-03-01 06:01] LABS: Magnesium 2.3 mg/dL (1.8-2.4); Phosphorus 3.3 mg/dL (2.5-4.9); Potassium 4.1 mmol/L (3.5-5.1)
[2021-03-01] MEDS: ASPIRIN EC 81 MG TAB PO SCH (09:00)
--- NOTE | 2021-03-01 09:12 | RAD REPORT ---
EXAM DESCRIPTION: RAD - Chest Single View - 03/01/2021 6:56 am CLINICAL HISTORY: hypoxia, eval opacities COMPARISON: February 25 TECHNIQUE: AP portable chest image was obtained 03/01/2021 6:56 am . FINDINGS: Interstitial pattern is not clearly different from comparison. Slight increase in lateral right base opacification is believed to be more artifact of patient rotation, technique and overlying soft tissues. Lung lewis are considered stable. Cardiomediastinal silhouette is enlarged but not clearly different. Central vasculature is prominent but partially obscured. No measurable pleural effusion and no pneumothorax. Elevated left hemidiaphragm present with promine nt bowel gas below the left diaphragm. No acute aortic findings suspected. IMPRESSION: Bilateral lung parenchymal opacification unchanged from February 25.
[2021-03-01] MEDS ORDERED: LIDOCAINE 5% OINT 30 GM TUBE TOP PRN (09:28)
[2021-03-01] MEDS: FUROSEMIDE 40 MG TABLET PO SCH ×2 (10:01→20:34)
[2021-03-01] MEDS: ENOXAPARIN 40 MG/0.4 ML SQ SCH (10:01)
[2021-03-01] MEDS: CEFTRIAXONE/SWI 1gm 1 GM/10 ML SYR IV SCH (10:01)
[2021-03-01] MEDS: ACETAZOLAMIDE 500 MG IV IV SCH (10:01)
[2021-03-01] MEDS: ACETAMINOPHEN 500 MG TAB PO PRN (10:06)
[2021-03-01] MEDS ORDERED: WATER FOR INJ,STERILE 10 ML ONE (10:32)
--- NOTE | 2021-03-01 12:50 | P.PN ---
Subjective Date of Service: 03/01/21 Primary Care Provider: SHAMA Chief Complaint: CHF exacerbation Subjective No ovenight events Cr slightly up to 1.5 no significant edema, will consider to reduce lasix to once daily pending OP O2 arrangement Physical exam general: awake3, NAD , obese Neck; Supple, No elevated JVD chest CTAB, no rlaes or wheezes hear: RRR, normal S1,2 no murmur or rub Chest: CTAB, no rales or wheezes Abdomen: Soft , Nt Extremities No edema or ulcer A/P 1.Acute kidney injury, secondary to cardiorenal syndrome type I. Renal function improving. renal ultrasound unremarkable. Continue diuretics as below. Monitor renal panel. 2. Acute decompensated heart failure. Improving. BNP significantly elevated. Troponin negative.TTE on 02/26/2010 1 is unremarkable. Continue Lasix 80 mg by mouth twice a day. Monitor daily weight. low-salt diet. 3.Hypertension. continue current regimen.l. 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 monitor calcium and phosphorus. Physical Examination - Vital Signs Temperature: 97.9 F Blood Pressure: 103/58 Pulse: 80 Respirations: 18 Pulse Ox (%): 97
--- NOTE | 2021-03-01 14:24 | P.PN ---
Subjective Date of Service: 03/01/21 Primary Care Provider: [place] Chief Complaint: CHF exacerbation Subjective: Improving (Slight improvement overnight, remains on 2 L nasal cannula. Did not receive the last night Lasix dosage due to hypotension. Patient with bilateral ankle pain, which he states he usually puts Aspercreme on.) Review of Systems 10-point ROS is otherwise unremarkable Physical Examination - Vital Signs Temperature: 97.9 F Blood Pressure: 103/58 Pulse: 80 Respirations: 18 Pulse Ox (%): 97 Assessment & Plan Physician Review Additional Text: Physical exam GEN: Alert, oriented x3, NAD HEENT: Normal conjunctiva, sclera anicteric CV: Regular rate and rhythm, 1+ b/l lower extremity edema to knees Pulm: diminished at bases bilaterally, nonlabored respirations on 2L NC ABD: Soft, nontender, nondistended MSK: No joint tenderness Integumentary: No rashes Problem List Dyspnea, hypoxia, pulmonary edema secondary to acute on chronic congestive heart failureunknown EF Hypertension Hyperlipidemia CHAVEZ, possible CKD, unknown h/o prostate cancer s/p radiation (2012) Bacteriuria, acute cystitis continue IV lasix per nephrology, takes 20mg PO BID at home cardiology consulted: echo ordered: Poor study, EF 50%, unable to fully evaluate wean O2 as tolerated; pt reports needing home O2 for several weeks "many years ago". Nephrology consulted, renal function slowly improving Bacteriuria noted on UA, patient reported urinating more than usual (with no change in lasix), but has been going on for weeks. Afebrile, no leukocytosis. Urine culture: Klebsiella pneumonia Continue Rocephin DVT PPX: Lovenox Code: Full Dispo: anticipate dc home in ~1-2 days career services officer consulted to set up home oxygen, awaiting to hear back from the [place] Time Spent Managing Pts Care (In Minutes): 35
[2021-03-01] MEDS: DOCUSATE NA 100 MG CAP PO SCH (20:50)
--- NOTE | 2021-03-02 05:57 | P.PN ---
Subjective Date of Service: 03/02/21 Primary Care Provider: [place] Chief Complaint: CHF exacerbation Subjective: Improving (Breathing better. This morning he reports severe right wrist pain, states in the location where he had an IV. With some slight swelling. Unable to bear weight or make a fist due to significant pain. No other joint pain.) Review of Systems 10-point ROS is otherwise unremarkable Physical Examination - Vital Signs Temperature: 98.2 F Blood Pressure: 112/60 Pulse: 87 Respirations: 16 Pulse Ox (%): 96 Assessment & Plan Physician Review Additional Text: Physical exam GEN: Alert, oriented x3, NAD HEENT: Normal conjunctiva, sclera anicteric CV: Regular rate and rhythm, trace to 1+ b/l lower extremity edema to knees Pulm: diminished at bases bilaterally, nonlabored respirations on 2L NC ABD: Soft, nontender, nondistended MSK: No joint tenderness Integumentary: No rashes Problem List Dyspnea, hypoxia, pulmonary edema secondary to acute on chronic diastolicc congestive heart failure (EF: 50%) Hypertension Hyperlipidemia CHAVEZ, possible CKD, unknown h/o prostate cancer s/p radiation (2012) Bacteriuria, acute cystitis Right wrist pain Acute on chronic diastolic CHF Cardiology consulted, echo with EF 50%, poor windows Edema significantly improved with IV diuresis. Patient's hypotension prevented few doses over the last 2 days to be given. Patient diuresed well Still requiring oxygen supplementation, wean down to 1 L this morning at rest. Will attempt to wean down oxygen throughout the day. Patient ambulates at home using a cane, but more commonly needing his wheeled Rollator/walker Now with significant right wrist pain, unable to bear much weight on it. We will need to check ambulatory pulse ox has requested transfer to [facility] to continue his care there. CHAVEZ improved with diuresis, nephrology consulted, suspect cardiorenal syndrome acute cystitis Bacteriuria noted on UA, patient reported urinating more than usual (with no change in Lasix) afebrile, no leukocytosis was empirically treated with IV rocephin, Ur Cx: klebsiella pneumoniae Right wrist pain Suspect due to IV infiltration, very tender, with swelling no erythema, no added warmth x-ray negative for fracture recommend rest, ice, elevation DVT PPX: Lovenox Code: Full Dispo: anticipate dc home in ~1-2 days community services coordinator consulted to set up home oxygen, [facility], patient is weak as well, and now worsened due to his right wrist pain [facility] Attempted to call, but [facility] Time Spent Managing Pts Care (In Minutes): 35
[2021-03-02 06:53] LABS: Potassium 4.1 mmol/L (3.5-5.1)
--- NOTE | 2021-03-02 06:58 | PN ---
Subjective: Mr. Mohan was admitted to Dr. Amador and is followed by Dr. Brooke for chronic congestive heart failure that is diastolic with acute exacerbation. Has improved drastically since he has been here. He denied any shortness of breath or chest pain. He denied any PND or orthopnea. His edema h as improved. Objective: Vital Signs: Stable. Chest: Clear. Diagnostic Data: Fairly unremarkable. Impression: My impression is that he has acute on chronic diastolic congestive heart failure that rodriguez s improved. Continue present regimen, can be discharged whenever it is okay with Dr. Bowie. Will se e him in the office in the next 2 weeks. MARLA/DEEPALI Voice ID: [id number] Report ID: [id number]
[2021-03-02] MEDS: ACETAMINOPHEN 500 MG TAB PO PRN (08:31)
[2021-03-02] MEDS: DOCUSATE NA 100 MG CAP PO SCH ×2 (08:32→21:36)
[2021-03-02] MEDS: ENOXAPARIN 40 MG/0.4 ML SQ SCH (08:33)
[2021-03-02] MEDS: ASPIRIN EC 81 MG TAB PO SCH (08:33)
[2021-03-02] MEDS: FUROSEMIDE 40 MG TABLET PO SCH ×2 (08:33→21:36)
[2021-03-02] MEDS: CEFTRIAXONE/SWI 1gm 1 GM/10 ML SYR IV SCH (08:33)
--- NOTE | 2021-03-02 09:53 | RAD REPORT ---
EXAM DESCRIPTION: RAD - Wrist Right 3 View - 03/02/2021 9:46 am CLINICAL HISTORY: Right wrist pain FINDINGS: No fracture or dislocation is seen. Osteoporosis
[2021-03-02] MEDS: TRAMADOL HCL 50 MG TAB PO PRN ×2 (11:50→21:44)
[2021-03-02] MEDS: carvediloL 6.25 MG TAB PO SCH (17:30)
--- NOTE | 2021-03-02 17:57 | P.PN ---
Subjective Date of Service: 03/02/21 Primary Care Provider: SHAMA Chief Complaint: CHF exacerbation Subjective complaining pf shoulder pain Cr stable no significant edema, will consider to reduce lasix to once daily pending OP O2 arrangement Physical exam general: awake3, NAD , obese Neck; Supple, No elevated JVD chest CTAB, no rlaes or wheezes hear: RRR, normal S1,2 no murmur or rub Chest: CTAB, no rales or wheezes Abdomen: Soft , Nt Extremities No edema or ulcer A/P 1.Acute kidney injury, secondary to cardiorenal syndrome type I. Renal function improving. renal ultrasound unremarkable. Continue diuretics as below. Monitor renal panel. 2. Acute decompensated heart failure. Improving. BNP significantly elevated. Troponin negative.TTE on 02/26/2010 1 is unremarkable. Continue Lasix 80 mg by mouth twice a day. Monitor daily weight. low-salt d iet. 3.Hypertension. continue current regimen.l. 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 monitor calcium and phosphorus. Physical Examination - Vital Signs Temperature: 98.1 F Blood Pressure: 111/76 Pulse: 92 Respirations: 14 Pulse Ox (%): 92
[2021-03-02] MEDS: ATORVASTATIN 80 MG TAB PO SCH (21:35)
[2021-03-02] MEDS: TAMSULOSIN 0.4 MG SR CAP PO SCH (21:36)
[2021-03-03] MEDS: carvediloL 6.25 MG TAB PO SCH ×2 (05:24→17:46)
[2021-03-03 07:31] LABS: Albumin 2.7 g/dL (3.4-5.0); Magnesium 2.6 mg/dL (1.8-2.4); Potassium 4.1 mmol/L (3.5-5.1)
[2021-03-03 07:35] LABS: Hematocrit 34.1 % (39.6-49.0); MPV 6.6 fL (7.6-11.3)
[2021-03-03] MEDS: DOCUSATE NA 100 MG CAP PO SCH ×2 (09:00→21:56)
[2021-03-03] MEDS: CEFTRIAXONE/SWI 1gm 1 GM/10 ML SYR IV SCH (09:00)
[2021-03-03] MEDS: FINASTERIDE 5 MG TAB PO SCH (09:00)
[2021-03-03] MEDS: ENOXAPARIN 40 MG/0.4 ML SQ SCH (09:00)
[2021-03-03] MEDS: FUROSEMIDE 40 MG TABLET PO SCH ×2 (09:00→21:00)
[2021-03-03] MEDS: TAMSULOSIN 0.4 MG SR CAP PO SCH ×2 (09:00→21:56)
[2021-03-03] MEDS: ASPIRIN EC 81 MG TAB PO SCH (09:00)
[2021-03-03] MEDS ORDERED: METHYLPREDNISOLONE 125 MG INJ IV ONE (09:31)
[2021-03-03 11:50] LABS: Vitamin D 1,25-Dihydroxy Total 37 pg/mL (18-72); Vitamin D,1,25-OH2, D2 <8 pg/mL
--- NOTE | 2021-03-03 17:40 | P.PN ---
Subjective Date of Service: 03/03/21 Primary Care Provider: SHAMA Chief Complaint: CHF exacerbation Subjective: Improving (Patient developed right hand swelling yesterday, with some improvement, has not been keeping it elevated. Still requiring 1-2 L oxygen. No new complaints) Review of Systems 10-point ROS is otherwise unremarkable Physical Examination - Vital Signs Temperature: 98.1 F Blood Pressure: 100/58 Pulse: 92 Respirations: 18 Pulse Ox (%): 93 Assessment & Plan Physician Review Additional Text: Physical exam GEN: Alert, oriented x3, NAD HEENT: Normal conjunctiva, sclera anicteric CV: Regular rate and rhythm, trace b/l lower extremity edema to knees Pulm: diminished at bases bilaterally, nonlabored respirations on 2L NC ABD: Soft, nontender, nondistended Integumentary: No rashes. MSK: Right hand with swelling, pain with wrist flexion and extension. Most pain located in dorsum of wrist, and along extensor tendons back of the hand. No erythema Problem List Dyspnea, hypoxia, pulmonary edema secondary to acute on chronic diastolicc congestive heart failure (EF: 50%) Hypertension Hyperlipidemia CHAVEZ, possible CKD, unknown h/o prostate cancer s/p radiation (2012) Bacteriuria, acute cystitis Right wrist pain and swelling Acute on chronic diastolic CHF Cardiology consulted, echo with EF 50%, poor windows Edema significantly improved with IV diuresis. Patient's hypotension prevented few doses over the last 2 days to be given. Patient diuresed well Still requiring oxygen supplementation, wean down to 1-2 L this morning at rest. Patient ambulates at home using a cane, but more commonly needing his wheeled Rollator/walker Now with significant right wrist pain, unable to bear much weight on it. CHAVEZ improved with diuresis, nephrology consulted, suspect cardiorenal syndrome acute cystitis Bacteriuria noted on UA, patient reported urinating more than usual (with no change in Lasix) afebrile, no leukocytosis was empirically treated with IV rocephin, Ur Cx: klebsiella pneumoniae Right wrist pain Suspect due to IV infiltration, very tender, with swelling; less likely reactive arthritis or gout; does have elevated uric acid no erythema, no added warmth x-ray negative for fracture No significant improvement, patient has not been elevating it Again reiterated importance of elevation and rest. Will trial steroids Patient with notable improvement of range of motion this afternoon, still a significant pain and swelling. Right arm sling ordered DVT PPX: Lovenox Code: Full Dispo: anticipate dc home in ~1-2 days special services supervisor consulted to set up home oxygen, [facility], patient is weak as well, and now worsened due to his right wrist pain Time Spent Managing Pts Care (In Minutes): 35
[2021-03-03] MEDS: METHYLPREDNISOLONE 125 MG INJ IV SCH ×2 (17:50→21:55)
[2021-03-03] MEDS: ATORVASTATIN 80 MG TAB PO SCH (21:55)
--- NOTE | 2021-03-04 02:36 | PN ---
Date of Progress Note: 03/03/2021 Chief Complaint: Acute on chronic kidney injury, cardiorenal syndrome, congestive heart failure exac erbation. Subjective: The patient is doing better. The patient was treated with Lasix and edema has resolved. Review of Systems: Denies fever, chills. Physical Examination: Lungs: Clear to auscultation bilaterally. Heart: S1, S2. Abdomen: Soft, benign. Extremities: Minimal edema in both ankles. Impression And Plan: 1.Acute on chronic kidney injury. Continue low-sodium diet. The patient had renal ultrasound, whic h was unremarkable. Continue maintenance diuretic, reduce dose to maintenance dose. 2.Acute decompensated congestive heart failure. Troponin was negative and LESLIE on 02/26 was unremark able. The patient was taking Lasix 80 mg twice a day along with low-sodium diet. 3.Hypertension. Continue current treatment. 4.Secondary hyperparathyroidism secondary to chronic kidney disease. Monitor calcium, phosphorus an d check vitamin D level. EB/MODL Voice ID: [id number] Report ID: [id number]
[2021-03-04] MEDS: carvediloL 6.25 MG TAB PO SCH (05:03)
--- NOTE | 2021-03-04 07:21 | P.PN ---
Subjective Date of Service: 03/04/21 Primary Care Provider: [place] Chief Complaint: CHF exacerbation Subjective: Other (he reports having less shortness of breath today. He states his bilateral lower extremity edema is also much better.) Physical Examination - Vital Signs Temperature: 97.1 F Blood Pressure: 103/65 Pulse: 68 Respirations: 18 Pulse Ox (%): 98 - Physical Exam General: Other (appears as his stated age) HEENT: Atraumatic, Normocephalic Neck: Supple, JVD not distended Respiratory: Other (Symmetric chest expansion) Cardiovascular: No rubs, No murmurs, Edema Gastrointestinal: Soft and benign, No guarding Musculoskeletal: Swelling Integumentary: No warmth Neurological: Normal speech, Normal tone Urinary: Other (no bladder distention) Assessment And Plan - Plan 1. Acute kidney injury, secondary to cardiorenal syndrome type I. Renal function improved. renal ultrasound unremarkable. Continue diuretics as below. Monitor renal panel. Monitor input and output. 2. Acute decompensated heart failure. Improving. BNP significantly elevated. Troponin negative.TTE on 02/26/21 is unremarkable. Continue Lasix 80 mg by mouth twice a day. Monitor daily weight. low-salt diet. Needs home O2. 3. Metabolic alkalosis. Improved. Received Diamox. Monitor. 4. Hypertension. Continue current regimen. 5. 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 Monitor calcium and phosphorus. 6. Disposition. Dc today w/ home O2. Outpt Nephrology follow up thru the [place] [facility].
[2021-03-04 08:16] LABS: Albumin 2.7 g/dL (3.4-5.0); Bilirubin Total 0.4 mg/dL (0.2-1.0); Magnesium 2.7 mg/dL (1.8-2.4); Potassium 4.4 mmol/L (3.5-5.1); Protein, Total 7.7 g/dL (6.4-8.2)
[2021-03-04 08:40] VITALS: O2SAT 91
[2021-03-04] MEDS: FUROSEMIDE 40 MG TABLET PO SCH (08:47)
[2021-03-04] MEDS: ASPIRIN EC 81 MG TAB PO SCH (08:48)
[2021-03-04] MEDS: DOCUSATE NA 100 MG CAP PO SCH (08:48)
[2021-03-04] MEDS: FINASTERIDE 5 MG TAB PO SCH (08:48)
[2021-03-04] MEDS: TAMSULOSIN 0.4 MG SR CAP PO SCH (08:48)
[2021-03-04] MEDS: ENOXAPARIN 40 MG/0.4 ML SQ SCH (08:49)
[2021-03-04] MEDS: METHYLPREDNISOLONE 125 MG INJ IV SCH (08:49)
[2021-03-04] MEDS: CEFTRIAXONE/SWI 1gm 1 GM/10 ML SYR IV SCH (08:49)
--- NOTE | 2021-03-04 15:10 | P.DS ---
Admission Date: 02/25/21 Discharge Date: 03/04/21 Primary Care Provider: SHAMA Disposition: ROUTINE DISCHARGE Discharge Condition: FAIR Reason for Admission: CHF exacerbation - Problems (1) Acute on chronic diastolic heart failure Current Visit: Yes Status: Acute (2) Acute UTI Current Visit: Yes Status: Acute (3) Chronic kidney disease, stage 3 Current Visit: Yes Status: Acute (4) Essential hypertension Current Visit: Yes Status: Acute Brief History of Present Illness: 75-year-old -Iranian male with history of congestive heart failure hypertension, hyperlipidemia, history of prostate cancer presented to the emergency department for swelling of the lower extremities. Symptoms associated with shortness of breath. Patient admits to taking Lasix 20 mg p.o. twice daily at home for many years now. Patient was evaluated in the emergency department labs are significant for creatinine 1.51 GFR 55 glucose 108 magnesium 2.5 BNP 1960 chest x-ray with diffuse prominence of the pulmonary interstitium favored to be edema, patient with 2+ pitting edema bilateral lower extremities DVT study negative bilaterally. Patient saturating in the 80s on room air currently on 2 L per nasal cannula saturating 95%. Patient admitted for further management. Hospital Course: Patient admitted to the medical floor and treated for CHF exacerbation with IV Lasix. He diuresed well with the Lasix. Echocardiogram demonstrated normal EF. His shortness of breath improved IV was able to ambulate with a walker. Patient needing oxygen to keep his SaO2 greater than 90%. He does qualify for home oxygen. He developed pain and swelling in the right wrist. Differential diagnosis included IV line infiltration versus acute gout. The swelling significantly improved with steroid. He was seen by nephrology for chronic kidney disease. Noted to have vitamin-D deficiency. Patient clinical condition has improved significantly and deemed stable for discharge. His home dose Lasix is resumed on discharge Vital Signs/Physical Exam: Temp Pulse Resp BP Pulse Ox 98.4 F 86 22 H 119/55 L 94 03/04/21 12:00 03/04/21 12:00 03/04/21 12:00 03/04/21 12:00 03/04/21 12:00 General: Alert, In no apparent distress, Oriented x3 HEENT: Mucous membr. moist/pink Neck: JVD not distended Respiratory: Clear to auscultation bilaterally, Normal air movement Cardiovascular: Regular rate/rhythm, Normal S1 S2, Edema (Lower extremity edema improved) Gastrointestinal: Soft and benign, Non-distended, No tenderness Musculoskeletal: Swelling, Tenderness, Other (Tenderness and swelling at the dorsum of right ulnar process area of the hand.) Integumentary: No rashes Neurological: Normal strength at 5/5 x4 extr Laboratory Data at Discharge: WBC 10.00 K/uL (4.3-10.9) 03/03/21 06:54 Hgb 10.9 g/dL (13.6-17.9) L 03/03/21 06:54 Hct 34.1 % (39.6-49.0) L 03/03/21 06:54 Plt Count 184 K/uL (152-406) 03/03/21 06:54 PT 13.6 SECONDS (9.5-12.5) H 02/25/21 21:25 INR 1.18 02/25/21 21:25 Sodium 139 mmol/L (136-145) 03/04/21 06:56 Potassium 4.4 mmol/L (3.5-5.1) 03/04/21 06:56 BUN 50 mg/dL (7-18) H 03/04/21 06:56 Creatinine 1.46 mg/dL (0.55-1.3) H 03/04/21 06:56 Glucose 154 mg/dL (74-106) H 03/04/21 06:56 Uric Acid 12.3 mg/dL (3.5-7.2) H 03/02/21 05:50 Phosphorus 3.0 mg/dL (2.5-4.9) 03/03/21 06:54 Magnesium 2.7 mg/dL (1.8-2.4) H 03/04/21 06:56 Total Bilirubin 0.4 mg/dL (0.2-1.0) 03/04/21 06:56 AST 33 U/L (15-37) 03/04/21 06:56 ALT 34 U/L (12-78) 03/04/21 06:56 Alkaline Phosphatase 83 U/L (45-117) 03/04/21 06:56 Troponin I < 0.02 ng/mL (0.0-0.045) 02/26/21 13:05 Triglycerides 63 mg/dL (<150) 02/26/21 05:41 Cholesterol 124 mg/dL (<200) 02/26/21 05:41 HDL Cholesterol 55 mg/dL (40-60) 02/26/21 05:41 Cholesterol/HDL Ratio 2.25 02/26/21 05:41 Home Medications: Aspirin [[place]] 1 tab PO DAILY 02/28/21 Atorvastatin Calcium [Lipitor] 0.5 tab PO BEDTIME 02/28/21 Finasteride 1 tab PO DAILY 02/28/21 Furosemide 1 tab PO BID 02/28/21 Lisinopril [Zestril] 1 tab PO DAILY 02/28/21 Tamsulosin HCl 1 tab PO BID 02/28/21 carvediloL [Carvedilol] 0.5 tab PO BID 02/28/21 Cefpodoxime Proxetil 100 mg PO BID #6 tablet 03/04/21 LIDOCAINE 5% Ointment [Lidocaine HCl*] 1 appl TOP BID PRN #1 tube 03/04/21 Methyl Gunnar/Menthol [Thera-Gesic*] 1 appl TOP QIDP PRN #1 tube 03/04/21 traMADol HCL [Ultram*] 50 mg PO Q6H PRN #20 tab 03/04/21 New Medications: Cefpodoxime Proxetil 100 mg PO BID #6 tablet LIDOCAINE 5% Ointment [Lidocaine HCl*] 1 appl TOP BID PRN #1 tube PRN Reason: Pain Scale 2-4 (Mild) Methyl Gunnar/Menthol [Thera-Gesic*] 1 appl TOP QIDP PRN #1 tube PRN Reason: MUSCLE/ARTHRITIC PAIN traMADol HCL [Ultram*] 50 mg PO Q6H PRN #20 tab PRN Reason: Pain Scale 5-7 (Moderate) Diet: AHA Activity: Fall precautions Followup: OOTOOT [Primary Care Provider] - Time spent managing pt's care (in minutes): 38
[2021-03-04 18:42] VITALS: BP 103/65; TEMP 97.1
[2021-03-08 03:37] LABS: Albumin, (SPE) 3.1 g/dL (3.8-4.8); Alpha-1-Globulins 0.6 g/dL (0.2-0.3); Alpha-2-Globulins 1.3 g/dL (0.5-0.9); Gamma Globulins 1.6 g/dL (0.8-1.7); INTERPRETATION REPORT
== END 2021-03-04 15:41 | disposition home or self-care (01) | DRG 291 ==
LOC: ER 20:33 → ERHOLD 23:51 → 2ND 02-26 00:53
PROVIDERS: ADMIT Hospitalist; ATTEND Hospitalist
DX: I13.0 Hypertensive heart and chronic kidney disease with heart failure and stage 1 through stage 4 chronic kidney disease, or unspecified chronic kidney disease (principal); I50.33 Acute on chronic diastolic (congestive) heart failure; N17.0 Acute kidney failure with tubular necrosis; E87.3 Alkalosis; N25.81 Secondary hyperparathyroidism of renal origin; N30.00 Acute cystitis without hematuria; N18.30 Chronic kidney disease, stage 3 unspecified; E78.5 Hyperlipidemia, unspecified; M10.9 Gout, unspecified; T80.89XA Other complications following infusion, transfusion and therapeutic injection, initial encounter; E55.9 Vitamin D deficiency, unspecified; R09.02 Hypoxemia; N28.1 Cyst of kidney, acquired; Z85.46 Personal history of malignant neoplasm of prostate; Z20.822 Contact with and (suspected) exposure to COVID-19
CPT/HCPCS: 36415; 71045; 76770; 80048; 80053; 80061; 80069; 80076; 81003; 81015; 82306; 82570; 82652; 83735; 83880; 83970; 84156; 84165; 84439; 84443; 84484; 84550; 85025; 85027; 85610; 87077; 87086; 87088; 87186; 93005; 93306; 93970; 96374; 97116; 97161; 97530; 99285; J0696; J1120; J1650; J1940; J2930; U0003

== ENCOUNTER 2021-03-31 15:10 | Observation (INO) | payer OTHER ==
[2021-03-31 16:38] LABS: Absolute Lymphocytes (CBC) 0.7 K/uL (0.7-4.9); Basophils % 0.6 % (0-1.3); Hematocrit 32.1 % (39.6-49.0); Lymphocytes % 8.1 % (15.3-44.8); MPV 6.3 fL (7.6-11.3); Protime INR 1.2; RBC Red Blood Cell Count 3.89 M/uL (4.33-5.43)
[2021-03-31 16:54] LABS: ALT/SGPT 23 U/L (12-78); AST/SGOT 21 U/L (15-37); Albumin 2.9 g/dL (3.4-5.0); Alkaline Phosphatase 87 U/L (45-117); BUN Blood Urea Nitrogen 23 mg/dL (7-18); Bicarbonate 35 mmol/L (21-32); Bilirubin Direct 0.2 mg/dL (0-0.2); Bilirubin Total 0.6 mg/dL (0.2-1.0); Glucose Level 100 mg/dL (74-106); Magnesium 2.2 mg/dL (1.8-2.4); NT PRO-BNP 1158 pg/mL (<450); Potassium 4.3 mmol/L (3.5-5.1); Protein, Total 7.8 g/dL (6.4-8.2); Sodium Level 142 mmol/L (136-145); Troponin (Emerg Dept Use Only) < 0.02 ng/mL (0.0-0.045)
--- NOTE | 2021-03-31 16:54 | RAD REPORT ---
EXAM DESCRIPTION: RAD - Chest Single View - 03/31/2021 4:14 pm CLINICAL HISTORY: FEVER COMPARISON: Portable March 01 TECHNIQUE: AP portable chest image was obtained 03/31/2021 4:14 pm . FINDINGS: Inspiratory effort is shallow. Large body habitus accentuates chest findings. No dense mas s or consolidations seen. Lung markings are prominent and scattered alveolar opacities are present. Lung findings are not substantially different from comparison. Pneumonia etiology including COVID-19 pneumonia cannot be excluded and needs correlation with testing and clinical presentation. Mild pulmo nary edema can present in this manner. Heart size is within range of normal for portable imaging and shallow inspiration. No measurable ple ural effusion and no pneumothorax. Severe bilateral shoulder joint degenerative changes are present w ithout acute bone finding. No acute aortic findings suspected. IMPRESSION: Prominent lung parenchymal pattern as detailed. Findings are not substantially different from the prior study. The mild pulmonary edema is suspected. Viral pneumonia including COVID-19 pneumonia can have this pre sentation as well.
[2021-03-31] MEDS ORDERED: CEFEPIME 2 GM in NA CHLORIDE 0.9% 100 ML IV ONE (17:00)
[2021-03-31] MEDS ORDERED: ACETAMINOPHEN 500 MG TAB ONE (17:12)
[2021-03-31 17:17] LABS: Urine Blood 3+ (Negative); Urine Glucose Negative (Negative); Urine Protein Trace (Negative); Urine Specific Gravity 1.015 (1.005-1.030)
[2021-03-31] MEDS ORDERED: VANCOMYCIN/NS 1 gm 1 GM/250 ML BAG IVPB ONE ×2 (17:30→22:15)
[2021-03-31 17:34] LABS: Urine Bacteria >50 /HPF (NONE SEEN); Urine RBC >50 /HPF (NONE SEEN)
[2021-03-31] MEDS ORDERED: FUROSEMIDE 40 MG/4 ML VIAL ONE (17:50)
[2021-03-31] MEDS ORDERED: FENTANYL CITR 100 MCG/2 ML ONE (17:50)
--- NOTE | 2021-03-31 17:55 | RAD REPORT ---
EXAM DESCRIPTION: US - UPPER EXTREMITY VENOUS UNILATE - 03/31/2021 5:40 pm CLINICAL HISTORY: Right arm pain and swelling COMPARISON: None. TECHNIQUE: Real-time sonographic evaluation of the right upper extremity deep venous systems was per formed. FINDINGS: Normal compressibility, flow augmentation, phasic flow and spontaneous flow are identified in the right upper extremity deep venous system. No intraluminal filling defects seen. Internal jugu lar and subclavian veins are normal as well. IMPRESSION: No DVT in the right upper extremity.
--- NOTE | 2021-03-31 18:43 | EDPHYS ---
Physician Documentation [facility] Name: Sumeet oMhan Jr Age: 75 yrs Sex: Male : 1945 Arrival Date: 03/31/2021 Time: 15:17 Bed 14 Private MD: ED Physician Samm Cloud HPI: 03/31 15:50 This 75 yrs old Black Male presents to ER via Wheelchair with complaints of Swelling of cp Right Hand and Right Wrist. 15:50 The patient or guardian complains of pain, that is acute, swelling, tenderness. The cp complaints affect the right wrist and right hand. Onset: The symptoms/episode began/occurred gradually, last month. 15:50 Treatment prior to arrival includes: no previous treatment. cp 15:50 Associated signs and symptoms: Pertinent positives: fever, Pertinent negatives: chest cp pain, shortness of breath. Historical: - Allergies: 15:24 No Known Allergies; ld1 - Home Meds: 15:27 acetaminophen 500 mg Oral cap [Active]; aspirin 81 mg Oral cpDR [Active]; atorvastatin ld1 80 mg oral tab 1 tab once daily [Active]; carvedilol 6.25 mg oral tab 1 tab 2 times per day [Active]; - PMHx: 15:24 Hypertensive disorder; Congestive heart failure; ld1 - PSHx: 15:24 right eye surgery; Right hip replacement; ld1 - Immunization history:: Adult Immunizations up to date, Client reports receiving the 2nd dose of the Covid vaccine. - Social history:: Smoking status: Patient denies any tobacco usage or history of. ROS: 15:55 Constitutional: Positive for fever. cp 15:55 ENT: Negative for drainage from ear(s), ear pain, sore throat, difficulty swallowing, cp difficulty handling secretions. 15:55 Cardiovascular: Positive for edema, Negative for chest pain. 15:55 Respiratory: Negative for cough, wheezing. 15:55 Abdomen/GI: Negative for abdominal pain. 15:55 : Negative for urinary symptoms. 15:55 MS/extremity: Positive for pain, swelling, tenderness, of the right wrist and right hand. 15:55 Neuro: Negative for altered mental status, headache, weakness. 15:55 All other systems are negative. Exam: 16:00 Constitutional: The patient appears in no acute distress, alert, awake, cp non-diaphoretic, non-toxic, well developed, well nourished, febrile, obese. 16:00 Head/Face: Normocephalic, atraumatic. cp 16:00 Eyes: Periorbital structures: appear normal, Conjunctiva: normal, no exudate, no injection, Sclera: no appreciated abnormality, Lids and lashes: appear normal, bilaterally. 16:00 ENT: External ear(s): are unremarkable, Nose: is normal, Mouth: Lips: moist, Oral cp mucosa: moist, Posterior pharynx: Airway: no evidence of obstruction, patent. 16:00 Neck: ROM/movement: is normal, is supple, without pain, no range of motions limitations, no meningismus. 16:00 Chest/axilla: Inspection: normal, Palpation: is normal, no crepitus, no tenderness. 16:00 Cardiovascular: Rate: tachycardic, Rhythm: regular, Edema: marked lower leg edema, JVD: is not appreciated. 16:00 Respiratory: the patient does not display signs of respiratory distress, Respirations: cp shallow respirations, that is mild, Breath sounds: decreased breath sounds, that are moderate, throughout, stridor, is not appreciated, wheezing: is not appreciated. 16:00 Abdomen/GI: Inspection: abdomen appears normal, Palpation: abdomen is soft and non-tender, in all quadrants. 16:00 Musculoskeletal/extremity: Extremities: grossly normal except: noted in the right wrist and right hand: decreased ROM, pain, swelling, tenderness, ROM: limited passive range of motion due to pain, in the right wrist and right hand, Pulses: noted to be 2+ in the right radial artery and left radial artery, the right wrist Severe pain noted. 16:44 ECG was reviewed by the Attending Physician. cp Vital Signs: 15:17 BP 140 / 82; Pulse 105; Resp 26; Temp 100.9(O); Pulse Ox 90% on 4 lpm NC; Weight 122.47 ld1 kg; Height 5 ft. 8 in. (172.72 cm); Pain 6/10; 16:41 BP 147 / 87; Pulse 87; Resp 26; Temp 99.0; Pulse Ox 100% ; Pain 6/10; tc5 20:03 BP 100 / 50; Pulse 100; Resp 18; Temp 98.9(O); Pulse Ox 100% on 3 lpm NC; Pain 0/10; ms4 21:06 BP 119 / 84; Pulse 92; Resp 18; Temp 98.6(O); Pulse Ox 98% on 3 lpm NC; Pain 0/10; ms4 15:17 Body Mass Index 41.05 (122.47 kg, 172.72 cm) ld1 MDM: 15:34 Patient medically screened. cp 16:00 Differential diagnosis: DVT, sepsis, cellulitis, abscess. cp 18:15 Data reviewed: vital signs, nurses notes, lab test result(s), EKG, radiologic studies, cp plain films, ultrasound. 18:15 Test interpretation: by ED physician or midlevel provider: ECG, plain radiologic cp studies. 03/31 15:48 Order name: Basic Metabolic Panel cp 03/31 15:48 Order name: CBC with Diff cp 03/31 15:48 Order name: LFT's cp 03/31 15:48 Order name: Magnesium cp 03/31 15:48 Order name: NT PRO-BNP cp 03/31 15:48 Order name: PT-INR; Complete Time: 18:08 cp 03/31 15:48 Order name: Troponin (emerg Dept Use Only); Complete Time: 18:08 cp 03/31 15:48 Order name: Blood Culture Adult (2) cp 03/31 15:48 Order name: Procalcitonin; Complete Time: 18:08 cp 03/31 15:48 Order name: Lactate; Complete Time: 18:08 cp 03/31 15:48 Order name: Influenza Screen (a \T\ B); Complete Time: 18:08 cp 03/31 15:48 Order name: Urine Microscopic Only; Complete Time: 18:08 cp 03/31 18:08 Interpretation: Normal except: URBC >50; UBACT >50. cp 03/31 15:49 Order name: Basic Metabolic Panel; Complete Time: 18:08 EDMS 03/31 18:09 Interpretation: Normal except: CO2 35; BUN 23; CRE 1.32; GFR 64. cp 03/31 15:48 Order name: XRAY Chest (1 view); Complete Time: 18:08 cp 03/31 15:49 Order name: CBC with Automated Diff; Complete Time: 18:08 EDMS 03/31 18:09 Interpretation: Normal except: RBC 3.89; HGB 10.2; HCT 32.1; MCH 26.3; MCHC 31.8; RDW cp 17.1; MPV 6.3; RICHARD% 79.3; LYM% 8.1. 03/31 15:49 Order name: Liver (Hepatic) Function; Complete Time: 18:08 EDMS 03/31 15:49 Order name: Magnesium; Complete Time: 18:08 EDMS 03/31 15:49 Order name: NT PRO-BNP; Complete Time: 18:08 EDMS 03/31 18:09 Interpretation: Abnormal: NT PRO-BNP 1158. cp 03/31 16:19 Order name: SARS-COV-2 RT PCR; Complete Time: 18:08 EDMS 03/31 16:50 Order name: UPPER EXTREMITY VENOUS UNILATE; Complete Time: 18:08 EDMS 03/31 17:17 Order name: Urine Dipstick-Ancillary; Complete Time: 18:08 EDMS 03/31 17:36 Order name: Urine Culture EDMS 04/01 05:32 Order name: CBC with Automated Diff EDMS 04/01 05:46 Order name: Comprehensive Metabolic Panel EDMS 04/01 05:46 Order name: Uric Acid EDMS 04/01 05:46 Order name: Phosphorus EDMS 04/01 05:46 Order name: Magnesium EDMS 04/01 06:28 Order name: CBC Smear Scan EDMS 03/31 15:48 Order name: EKG; Complete Time: 15:49 cp 03/31 15:48 Order name: Cardiac monitoring; Complete Time: 16:33 cp 03/31 15:48 Order name: EKG - Nurse/Tech; Complete Time: 16:33 cp 03/31 15:48 Order name: IV Saline Lock; Complete Time: 16:33 cp 03/31 15:48 Order name: Labs collected and sent; Complete Time: 16:33 cp 03/31 15:48 Order name: O2 Per Protocol; Complete Time: 16:29 cp 03/31 15:48 Order name: O2 Sat Monitoring; Complete Time: 16:29 cp 03/31 15:48 Order name: Urine Dipstick-Ancillary (obtain specimen); Complete Time: 17:36 cp EC:44 Rate is 93 beats/min. Rhythm is regular. AK interval is normal. QRS interval is normal. cp QT interval is normal. T waves are Inverted in lead aVR. Interpreted by me. Reviewed by me. Administered Medications: 16:50 Drug: Tylenol 1000 mg Route: PO; tc5 17:36 Drug: Cefepime 2 grams Route: IVPB; Rate: 200 ml/hr; Infused Over: 30 mins; Site: left tc5 antecubital; 17:36 Drug: Lasix (furosemide) 40 mg Route: IVP; Site: left antecubital; tc5 17:36 Drug: fentaNYL (PF) 25 mcg Route: IVP; Site: left antecubital; tc5 17:54 Drug: vancoMYCIN 1 grams Route: IVPB; Infused Over: 2 hrs; Site: left antecubital; tc5 Disposition: 18:59 Chart complete. cp 04/01 14:21 Co-signature as Attending Physician, Samm Cloud MD I agree with the assessment and sp3 plan of care. Disposition Summary: 03/31/21 18:42 Hospitalization Ordered Hospitalization Status: Inpatient Admission cp Provider: Edinson Shay cp Condition: Fair cp Problem: new cp Symptoms: have improved cp Bed/Room Type: Standard cp Location: Telemetry/MedSurg (Inpatient)(04/01/21 07:45) ja1 Room Assignment: 209(04/01/21 07:45) ja1 Diagnosis - Cellulitis of right upper limb cp - UTI/ Urinary tract infection, site not specified cp - Unspecified combined systolic (congestive) and diastolic (congestive) heart failure cp Forms: - Medication Reconciliation Form cp - SBAR form cp Signatures: Dispatcher [employer] EDMS Blanco Dominguez PA PA cp Mary Reid RN RN Noel Mack RN RN ja1 Brandi Nieves RN RN ld1 Samm Cloud MD MD sp3 Rosita Cronin RN RN tc5 Corrections: (The following items were deleted from the chart) 03/31 16:19 15:49 CORONAVIRUS+MR.LAB.BRZ ordered. EDMS EDMS 16:50 15:49 Extremity Venous Uni Ltd+US.RAD.BRZ ordered. EDMS EDMS 20:02 15:48 Weldon ordered. cp ms4 20:22 18:42 cp cg 20:58 20:22 429 cg cg 21:03 18:42 Telemetry/MedSurg (Inpatient) cp cg 21:03 20:58 cg cg 04/01 07:45 03/31 21:03 [facility] cg ja1 04/01 07:45 03/31 [facility]
--- NOTE | 2021-03-31 18:43 | ER ---
Nurse's Notes [facility] Name: Sumeet Mohan Jr Age: 75 yrs Sex: Male : 1945 Arrival Date: 03/31/2021 Time: 15:17 Bed 14 Private MD: Diagnosis: Cellulitis of right upper limb;UTI/ Urinary tract infection, site not specified;Unspecified combined systolic (congestive) and diastolic (congestive) heart failure Presentation: 03/31 15:17 Chief complaint: Patient states: pain in right hand due to recent IV and warmth in ld1 chest that comes and goes, denies chest pain. Coronavirus screen: Client presents with at least one sign or symptom that may indicate coronavirus-19. Standard/surgical mask placed on the client. Ebola Screen: No symptoms or risks identified at this time. Initial Sepsis Screen: Does the patient meet any 2 criteria? RR > 20 per min. HR > 90 bpm. Yes Does the patient have a suspected source of infection? No. Patient's initial sepsis screen is negative. Risk Assessment: Do you want to hurt yourself or someone else? Patient reports no desire to harm self or others. Onset of symptoms was March 31, 2021. 15:17 Method Of Arrival: Wheelchair ld1 15:17 Acuity: SUNG 3 ld1 Triage Assessment: 15:24 General: Appears in no apparent distress. uncomfortable, Behavior is calm, cooperative, ld1 appropriate for age. Pain: Complains of pain in right hand Pain does not radiate. Pain currently is 6 out of 10 on a pain scale. Quality of pain is described as throbbing, Pain began X 3 weeks, since being in the hospital Is continuous. EENT: No signs and/or symptoms were reported regarding the EENT system. Neuro: Level of Consciousness is awake, alert, obeys commands, Oriented to person, place, time, situation. Cardiovascular: Capillary refill < 3 seconds Patient's skin is warm and dry. Respiratory: Airway is patent Respiratory effort is even, labored, Respiratory pattern is regular, symmetrical. GI: Abdomen is non-distended, obese, Reports warmth in upper abdomen and mid chest. Denies chest pain. : No signs and/or symptoms were reported regarding the genitourinary system. Derm: No signs and/or symptoms reported regarding the dermatologic system. Musculoskeletal: No signs and/or symptoms reported regarding the musculoskeletal system. Historical: - Allergies: 15:24 No Known Allergies; ld1 - Home Meds: 15:27 acetaminophen 500 mg Oral cap [Active]; aspirin 81 mg Oral cpDR [Active]; atorvastatin ld1 80 mg oral tab 1 tab once daily [Active]; carvedilol 6.25 mg oral tab 1 tab 2 times per day [Active]; - PMHx: 15:24 Hypertensive disorder; Congestive heart failure; ld1 - PSHx: 15:24 right eye surgery; Right hip replacement; ld1 - Immunization history:: Adult Immunizations up to date, Client reports receiving the 2nd dose of the Covid vaccine. - Social history:: Smoking status: Patient denies any tobacco usage or history of. Screenin:44 Abuse screen: Denies threats or abuse. Denies injuries from another. Nutritional tc5 screening: No deficits noted. Tuberculosis screening: No symptoms or risk factors identified. Fall Risk None identified. Assessment: 16:39 General: Appears uncomfortable, Behavior is calm, cooperative, appropriate for age, pt tc5 reports pain and swelling to Rt hand since he left the hospital 2 weeks ago. pt states rt hand started swelling where there was an IV placed.. 21:05 Reassessment: Patient appears in no apparent distress at this time. No changes from ms4 previously documented assessment. Patient and/or family updated on plan of care and expected duration. Pain level reassessed. Patient is alert, oriented x 3, equal unlabored respirations, skin warm/dry/pink. per patient's , she does not want her to go to the 4th floor she wants her to stay in the ER. Cal, charge nurse, and warehouse material handler notified of situation. patient updated on plan of care. Vital Signs: 15:17 BP 140 / 82; Pulse 105; Resp 26; Temp 100.9(O); Pulse Ox 90% on 4 lpm NC; Weight 122.47 ld1 kg; Height 5 ft. 8 in. (172.72 cm); Pain 6/10; 16:41 BP 147 / 87; Pulse 87; Resp 26; Temp 99.0; Pulse Ox 100% ; Pain 6/10; tc5 20:03 BP 100 / 50; Pulse 100; Resp 18; Temp 98.9(O); Pulse Ox 100% on 3 lpm NC; Pain 0/10; ms4 21:06 BP 119 / 84; Pulse 92; Resp 18; Temp 98.6(O); Pulse Ox 98% on 3 lpm NC; Pain 0/10; ms4 15:17 Body Mass Index 41.05 (122.47 kg, 172.72 cm) ld1 ED Course: 15:17 Patient arrived in ED. ds1 15:21 Triage completed. ld1 15:24 Arm band placed on left wrist. ld1 15:29 Blanco Dominguez PA is PHCP. cp 15:29 Samm Cloud MD is Attending Physician. cp 15:34 Rosita Cronin, MONA is Primary Nurse. tc5 16:13 XRAY Chest (1 view) In Process Unspecified. EDMS 16:33 NT PRO-BNP Sent. ch5 16:33 Magnesium Sent. ch5 16:33 LFT's Sent. ch5 16:33 CBC with Diff Sent. ch5 16:33 Basic Metabolic Panel Sent. ch5 16:38 SARS-COV-2 RT PCR Sent. tc5 16:38 Magnesium Sent. tc5 16:38 NT PRO-BNP Sent. tc5 16:38 Basic Metabolic Panel Sent. tc5 16:38 CBC with Automated Diff Sent. tc5 16:38 Liver (Hepatic) Function Sent. tc5 16:39 Lactate Sent. tc5 16:39 Procalcitonin Sent. tc5 16:39 Blood Culture Adult (2) Sent. tc5 17:40 UPPER EXTREMITY VENOUS UNILATE In Process Unspecified. EDMS 18:41 Edinson Shay is Hospitalizing Provider. cp 20:38 Inserted saline lock: 20 gauge in left antecubital area, using aseptic technique. ms4 Administered Medications: 16:50 Drug: Tylenol 1000 mg Route: PO; tc5 17:36 Drug: Cefepime 2 grams Route: IVPB; Rate: 200 ml/hr; Infused Over: 30 mins; Site: left tc5 antecubital; 17:36 Drug: Lasix (furosemide) 40 mg Route: IVP; Site: left antecubital; tc5 17:36 Drug: fentaNYL (PF) 25 mcg Route: IVP; Site: left antecubital; tc5 17:54 Drug: vancoMYCIN 1 grams Route: IVPB; Infused Over: 2 hrs; Site: left antecubital; tc5 Outcome: 18:42 Decision to Hospitalize by Provider. cp 04/01 08:39 Patient left the ED. tc5 Signatures: Dispatcher [employer] EDMS Tiffanie Bowens Corey, PA PA cp Brandi Nieves, RN RN ld1 Mae Mi RN RN ms4 Alberto Velasquez RN RN ch5 Rosita Cronin RN RN tc5 Corrections: (The following items were deleted from the chart) 03/31 16:50 16:31 In radiology for Extremity Venous [email or web address]. EDIA EDIA
--- NOTE | 2021-03-31 20:03 | P.HP ---
Certification for Inpatient Patient admitted to: Observation With expected LOS: <2 Midnights Patient will require the following post-hospital care: None Practitioner: I am a practitioner with admitting privileges, knowledge of patient current condition, hospital course, and medical plan of care. Services: Services provided to patient in accordance with Admission requirements found in Title 42 Section 412.3 of the Code of Federal Regulations Patient History Date of Service: 03/31/21 Reason for admission: RUE swelling History of Present Illness: Mr. Mohan is a 75 yo M with CHF, CKD3, HTN, HLD, history of prostate ca who presents with worsening swelling in the right hand. This began when he was discharged from the hospital about a month ago. Suspicion for IV line filtration vs gout vs reactive arthritis at that time. Xray of the R hand without acute fracture. He was given IV steroids on that visit with improvement. He says that since discharge PO steroids were helping with symptoms until he ran out, however per discharge summary, patient was only discharged on PO antibiotics and not PO steroids. Ultrasound shows no DVT in RUE. UA still positive for bacteria, culture last month was positive for Klebsiella. Patient was febrile, tachycardic and tachypneic on arrival and flagging sepsis. Procal and lactate within normal limits. Received pain medication, broad sprectrum IV antibiotics in the ED. Allergies No Known Allergies Allergy (Unverified 02/28/21 09:22) Home Medications: Aspirin [Vazalore] 1 tab PO DAILY 02/28/21 Atorvastatin Calcium [Lipitor] 0.5 tab PO BEDTIME 02/28/21 Finasteride 1 tab PO DAILY 02/28/21 Furosemide 1 tab PO BID 02/28/21 Lisinopril [Zestril] 1 tab PO DAILY 02/28/21 Tamsulosin HCl 1 tab PO BID 02/28/21 carvediloL [Carvedilol] 0.5 tab PO BID 02/28/21 Cefpodoxime Proxetil 100 mg PO BID #6 tablet 03/04/21 Cholecalciferol (Vitamin D3) [Vitamin D3] 4,000 unit PO DAILY #60 capsule 03/04/21 LIDOCAINE 5% Ointment [Lidocaine HCl*] 1 appl TOP BID PRN #1 tube 03/04/21 Methyl Gunnar/Menthol [Thera-Gesic*] 1 appl TOP QIDP PRN #1 tube 03/04/21 predniSONE [Prednisone*] 20 mg PO DAILY #5 tab 03/04/21 traMADol HCL [Ultram*] 50 mg PO Q6H PRN #20 tab 03/04/21 - Past Medical/Surgical History Has patient received pneumonia vaccine in the past: No Diabetic: No -: CHFunknown EF -: Hypertension -: Hyperlipidemia -: Prostate cancer 2012 -: Right hip surgery -: Retinal detachment -: Pneumothorax Psychosocial/ Personal History: Patient lives at home with his - Family History Mother -: Diabetes Father -: Cancer Sister -: Cancer - Social History Smoking Status: Never smoker Alcohol use: No CD- Drugs: No Caffeine use: No Place of Residence: Home Review of Systems 10-point ROS is otherwise unremarkable General: Fever Eyes: Unremarkable ENT: Unremarkable Respiratory: Shortness of Breath, As per HPI Cardiovascular: Unremarkable Gastrointestinal: Unremarkable Genitourinary: Unremarkable Musculoskeletal: Hand Pain, As per HPI Integumentary: As per HPI Neurological: Unremarkable Lymphatics: Unremarkable Physical Examination - Physical Exam General: Alert, In no apparent distress HEENT: Atraumatic, PERRLA, Mucous membr. moist/pink, EOMI, Sclerae nonicteric Neck: Supple, 2+ carotid pulse no bruit, No LAD, Without JVD or thyroid abnormality Respiratory: Normal air movement, Crackles/rales Cardiovascular: Normal pulses, Regular rate/rhythm, Normal S1 S2, No gallops, No rubs, No murmurs, Edema Capillary refill: <2 Seconds Gastrointestinal: Normal bowel sounds, Soft and benign, Non-distended, No tenderness Musculoskeletal: Swelling, Tenderness Integumentary: Tenderness/swelling, Warmth Neurological: Normal speech, Normal strength at 5/5 x4 extr, Normal tone, Normal affect Lymphatics: No axilla or inguinal lymphadenopathy - Studies Laboratory Data (last 24 hrs) 03/31/21 16:10: PT 13.8 H, INR 1.20 03/31/21 16:10: WBC 8.10, Hgb 10.2 L, Hct 32.1 L, Plt Count 166 03/31/21 16:10: Sodium 142, Potassium 4.3, BUN 23 H, Creatinine 1.32 H, Glucose 100, Magnesium 2.2 D, Total Bilirubin 0.6, AST 21, ALT 23, Alkaline Phosphatase 87 Microbiology Data (last 24 hrs): 03/31/21 15:58 Nasopharnyx Influenza Type A Antigen Screen - Final 03/31/21 15:58 Nasopharnyx Influenza Type B Antigen Screen - Final Assessment and Plan - Problems (Diagnosis) (1) Swelling of right hand Current Visit: Yes Status: Acute (2) Acute UTI Current Visit: No Status: Acute (3) Acute on chronic diastolic heart failure Current Visit: No Status: Chronic (4) Chronic kidney disease, stage 3 Current Visit: No Status: Chronic Qualifiers: Chronic kidney disease stage 3 subtype: unspecified whether 3a or 3b Qualified Code(s): N18.30 - Chronic kidney disease, stage 3 unspecified (5) Essential hypertension Current Visit: No Status: Chronic - Plan continue IV vancomycin and cefepime continue IV steroids uric acid level pending, urine and blood cultures pending continue tylenol PRN for fever O2 as needed pain management as needed reconcile and continue home medications Discharge Plan: Home Plan to discharge in: 48 Hours - Advance Directives Does patient have a Living Will: No Does patient have a Durable POA for Healthcare: No - Code Status/Comfort Care Code Status Assessed: Yes (full code ) Critical Care: No Time Spent Managing Pts Care (In Minutes): 70
[2021-03-31] MEDS ORDERED: TRAMADOL 37.5mg/APAP 325mg PER TAB PO PRN (21:40)
[2021-03-31] MEDS ORDERED: ACETAMINOPHEN 500 MG TAB PO PRN (21:40)
[2021-03-31] MEDS ORDERED: ONDANSETRON 4 MG/2 ML VIAL IV PRN (21:40)
[2021-03-31 22:34] VITALS: BMI 41.0
[2021-03-31] MEDS ORDERED: METHYLPREDNISOLONE 40 MG INJ ONE (22:50)
[2021-04-01] MEDS ORDERED: CEFEPIME 1 GM/VIAL IV SCH (05:00)
[2021-04-01] MEDS ORDERED: Pharmacy Consult 1 EA XX PRN (05:00)
[2021-04-01 05:27] LABS: Absolute Lymphocytes (CBC) 0.5 K/uL (0.7-4.9); Basophils % 0.6 % (0-1.3); Hematocrit 31.4 % (39.6-49.0); Lymphocytes % 6.3 % (15.3-44.8); MPV 6.3 fL (7.6-11.3); RBC Red Blood Cell Count 3.83 M/uL (4.33-5.43)
[2021-04-01 05:46] LABS: Albumin 2.7 g/dL (3.4-5.0); Bilirubin Total 0.6 mg/dL (0.2-1.0); Magnesium 2.1 mg/dL (1.8-2.4); Phosphorus 3.5 mg/dL (2.5-4.9); Potassium 4.3 mmol/L (3.5-5.1); Protein, Total 7.4 g/dL (6.4-8.2); Uric Acid 11.1 mg/dL (3.5-7.2)
[2021-04-01] MEDS: METHYLPREDNISOLONE 125 MG INJ IV SCH ×2 (06:00)
[2021-04-01 06:27] LABS: White Blood Cell Scan OK (OK)
[2021-04-01 06:28] LABS: Blood Morphology Comment NOT SEEN (NOT SEEN); Platelet Estimate ADEQ
[2021-04-01] MEDS ORDERED: METHYLPREDNISOLONE 125 MG INJ ONE (06:55)
[2021-04-01 08:13] VITALS: O2SAT 92
[2021-04-01] MEDS ORDERED: CEFEPIME 1 GM/100 ML BAG IV SCH (09:00)
[2021-04-01] MEDS ORDERED: FUROSEMIDE 40 MG TABLET PO SCH (09:00)
[2021-04-01] MEDS ORDERED: VANCOMYCIN 2 GM in NA CHLORIDE 0.9% 500 ML IVPB SCH ×2 (11:00→16:00)
[2021-04-01] MEDS ORDERED: COLCHICINE 0.6 MG TAB PO SCH (12:00)
--- NOTE | 2021-04-01 15:28 | RAD REPORT ---
EXAM DESCRIPTION: RAD - Wrist Right 3 View - 04/01/2021 3:11 pm CLINICAL HISTORY: Gouty arthritis COMPARISON: Wrist Right 3 View dated 03/02/2021 FINDINGS: No acute fracture. No malalignment. Erosions are present along the lateral aspect of the u lnar styloid. IMPRESSION: No acute osseous abnormality involving the right wrist. Erosions of the ulnar styloid ca n be seen with an inflammatory arthropathy.
--- NOTE | 2021-04-01 15:57 | P.PN ---
Subjective Date of Service: 04/01/21 Chief Complaint: RUE swelling Patient with swollen painful right wrist. He has no fever. Physical Examination - Vital Signs Temperature: 99.3 F Blood Pressure: 119/69 Pulse: 88 Respirations: 20 Pulse Ox (%): 93 - Physical Exam General: In no apparent distress, Oriented x3 HEENT: Mucous membr. moist/pink Neck: Supple, JVD not distended Respiratory: Clear to auscultation bilaterally, Normal air movement Cardiovascular: No edema, Regular rate/rhythm Gastrointestinal: Normal bowel sounds, Soft and benign, Non-distended Musculoskeletal: Swelling (Right wrist), Tenderness (Right wrist) Integumentary: No rashes Neurological: Normal strength at 5/5 x4 extr - Studies Laboratory Data (last 24 hrs) 03/31/21 16:10: PT 13.8 H, INR 1.20 03/31/21 16:10: WBC 8.10, Hgb 10.2 L, Hct 32.1 L, Plt Count 166 03/31/21 16:10: Sodium 142, Potassium 4.3, BUN 23 H, Creatinine 1.32 H, Glucose 100, Magnesium 2.2 D, Total Bilirubin 0.6, AST 21, ALT 23, Alkaline Phosphatase 87 Microbiology Data (last 24 hrs): 03/31/21 15:58 Nasopharnyx Influenza Type A Antigen Screen - Final 03/31/21 15:58 Nasopharnyx Influenza Type B Antigen Screen - Final Assessment And Plan - Current Problems (Diagnosis) (1) Swelling of right hand Current Visit: Yes Status: Acute (2) Chronic diastolic heart failure Current Visit: Yes Status: Acute (3) Chronic kidney disease, stage 3 Current Visit: No Status: Chronic Qualifiers: Chronic kidney disease stage 3 subtype: unspecified whether 3a or 3b Q ualified Code(s): N18.30 - Chronic kidney disease, stage 3 unspecified (4) Essential hypertension Current Visit: No Status: Chronic - Plan Patient with elevated uric acid. X-ray of the right foot shows erosion on the styloid process which may indicate inflammatory arthropathy. I suspect patient swollen wrist pain secondary to acute gout. Patient started on Colchicine and prednisone. He is on antibiotics for suspected cellulitis. Will get an MRI of the wrist to further evaluate.
--- NOTE | 2021-04-01 16:45 | EKG ---
Test Date: 2021-03-31 Test Time: 16:41:23 Planning Coordinator: DMITRIY MEASUREMENT RESULTS: Intervals: Rate: 93 MS: 132 QRSD: 78 QT: 356 QTc: 442 [place]: P: 61 MS: 132 QRS: -51 T: 51 INTERPRETIVE STATEMENTS: Sinus rhythm with premature supraventricular complexes Left anterior fascicular block Abnormal ECG Compared to ECG 03/01/2021 11:05:04 Atrial premature complex(es) now present Left anterior fascicular block now present Ventricular premature complex(es) no longer present Left-axis deviation no longer present T-wave abnormality no longer present Prolonged QT interval no longer present Electronically Signed On 04-01-21 16:41:19 CDT by Dale Bee
--- NOTE | 2021-04-01 16:56 | P.DS ---
Admission Date: 03/31/21 Discharge Date: 04/02/21 Disposition: AMA-LEFT AGAINST MEDICAL ADVIC Discharge Condition: FAIR Reason for Admission: RUE swelling - Problems (1) Swelling of right hand Status: Acute (2) Chronic diastolic heart failure Status: Acute (3) Chronic kidney disease, stage 3 Status: Chronic Qualifiers: Chronic kidney disease stage 3 subtype: unspecified whether 3a or 3b Qualified Code(s): N18.30 - Chronic kidney disease, stage 3 unspecified (4) Essential hypertension Status: Chronic Brief History of Present Illness: 75-year-old gentleman with a history of congestive heart failure, chronic kidney disease, hypertension, hyperlipidemia, history of prostate cancer presented to the emergency department with a complaint of swelling in her right hand. The swelling began during his previous admission 1 month ago. There was suspicion for IV line infiltration versus gout arthritis x-ray of the right hand was without any acute fracture. Patient was treated with steroid for possible gouty arthritis and discharged with oral steroids and antibiotics. Per report the steroid was helping with the pain and swelling until he ran out of the steroid. Patient reported worsening pain. Ultrasound of the right upper extremity showed no DVT. UA is positive for bactiuria. Previous urine culture grew Klebsiella pneumonia sensitive to several antibiotics. Hospital Course: Patient placed under observation on the medical floor. Noted his uric acid elevated to 11. X-ray of the right wrist obtained showed erosions on the styloid process indicating no inflammatory arthropathy. His wrist swelling likely secondary to acute gouty arthritis. Patient started on oral Colchicine and prednisone 40 mg daily. Noted patient reported no symptoms while he was on prednisone at home. He had low-grade fever on presentation. UA suggested the presence of UTI. Urine culture and blood cultures pending. Patient treated with IV antibiotics. Overall patient was deemed stable. I called patient's daughter to discuss his diagnosis and management. His daughter felt patient wrist swelling is due to previous IV line on the dorsum of the hand and not gout. She was quite argumentative. She showed me photos she took of the patient's hand when the IV line was in place while on admission about 1 month ago. I showed her patient's lab results including the elevated uric acid and a wrist x-ray results indicative of arthropathy. I offered MRI of the right wrist to further evaluate for arthritis changes, joint effusion and also to evaluate the soft tissue for edema or abscess. Daughter stated she was told patient was going to be discharged and therefore requested patient to be discharged so she can bring him for an MRI tomorrow. I recommended the MRI to be done as an inpatient in case patient will need an immediate intervention like joint aspiration and also to address her concern regarding IV infiltration of the hand. Patient and daughter initially agreed to stay for further evaluation but later requested that patient be discharged immediately. I informed them patient need to stay in order to address further concerns and in case she will need joint aspiration. Moreover she was informed patient has urinary tract infection being treated with antibiotics and that his blood cultures and urine culture have not resulted yet. Patient and daughter signed out against medical advice. Vital Signs/Physical Exam: Temp Pulse Resp BP Pulse Ox 99.3 F 88 20 119/69 93 04/01/21 15:59 04/01/21 15:59 04/01/21 15:59 04/01/21 15:59 04/01/21 15:59 Laboratory Data at Discharge: WBC 8.00 K/uL (4.3-10.9) 04/01/21 05:08 Hgb 9.9 g/dL (13.6-17.9) L 04/01/21 05:08 Hct 31.4 % (39.6-49.0) L 04/01/21 05:08 Plt Count 161 K/uL (152-406) 04/01/21 05:08 PT 13.8 SECONDS (9.5-12.5) H 03/31/21 16:10 INR 1.20 03/31/21 16:10 Sodium 142 mmol/L (136-145) 04/01/21 05:08 Potassium 4.3 mmol/L (3.5-5.1) 04/01/21 05:08 BUN 21 mg/dL (7-18) H 04/01/21 05:08 Creatinine 1.19 mg/dL (0.55-1.3) 04/01/21 05:08 Glucose 118 mg/dL (74-106) H 04/01/21 05:08 Uric Acid 11.1 mg/dL (3.5-7.2) H 04/01/21 05:08 Phosphorus 3.5 mg/dL (2.5-4.9) 04/01/21 05:08 Magnesium 2.1 mg/dL (1.8-2.4) 04/01/21 05:08 Total Bilirubin 0.6 mg/dL (0.2-1.0) 04/01/21 05:08 AST 20 U/L (15-37) 04/01/21 05:08 ALT 23 U/L (12-78) 04/01/21 05:08 Alkaline Phosphatase 80 U/L (45-117) 04/01/21 05:08 Home Medications: Aspirin [Vazalore] 1 tab PO DAILY 02/28/21 Atorvastatin Calcium [Lipitor] 0.5 tab PO BEDTIME 02/28/21 Finasteride 1 tab PO DAILY 02/28/21 Furosemide 1 tab PO BID 02/28/21 Lisinopril [Zestril] 1 tab PO DAILY 02/28/21 Tamsulosin HCl 1 tab PO BID 02/28/21 carvediloL [Carvedilol] 0.5 tab PO BID 02/28/21 Cholecalciferol (Vitamin D3) [Vitamin D3] 4,000 unit PO DAILY #60 capsule 03/04/21 LIDOCAINE 5% Ointment [Lidocaine HCl*] 1 appl TOP BID PRN #1 tube 03/04/21 Methyl Gunnar/Menthol [Thera-Gesic*] 1 appl TOP QIDP PRN #1 tube 03/04/21 Amox/Clavulanate [Augmentin 875-125 Tab] 1 each PO BID #14 tab 04/01/21 Colchicine [Colcrys *] 0.6 mg PO DAILY #10 tab 04/01/21 predniSONE [Prednisone*] 40 mg PO DAILY #14 tab 04/01/21 traMADol HCL [Ultram*] 50 mg PO Q6H PRN #20 tab 04/01/21 New Medications: Amox/Clavulanate [Augmentin 875-125 Tab] 1 each PO BID #14 tab Colchicine [Colcrys *] 0.6 mg PO DAILY #10 tab predniSONE [Prednisone*] 40 mg PO DAILY #14 tab traMADol HCL [Ultram*] 50 mg PO Q6H PRN #20 tab PRN Reason: Pain Scale 5-7 (Moderate) Diet: AHA Activity: Fall precautions Followup: Unknown,U [Primary Care Provider] - Time spent managing pt's care (in minutes): 42
[2021-04-01 17:36] VITALS: BP 119/88; TEMP 97
[2021-04-02] MEDS ORDERED: predniSONE 20 MG TAB PO SCH (09:00)
[2021-04-02] MEDS ORDERED: COLCHICINE 0.6 MG TAB PO SCH (09:00)
== END 2021-04-01 18:15 | disposition left against medical advice (07) ==
LOC: ER 15:10 → ERHOLD 18:52 → INTOOBSV 18:52 → 4TH 20:35 → ERHOLD 21:28 → 2ND 04-01 08:19
PROVIDERS: ADMIT Internal Medicine; ATTEND Internal Medicine
DX: M79.89 Other specified soft tissue disorders (principal); M10.9 Gout, unspecified; Z53.29 Procedure and treatment not carried out because of patient's decision for other reasons; N39.0 Urinary tract infection, site not specified; I13.0 Hypertensive heart and chronic kidney disease with heart failure and stage 1 through stage 4 chronic kidney disease, or unspecified chronic kidney disease; N18.30 Chronic kidney disease, stage 3 unspecified; I50.32 Chronic diastolic (congestive) heart failure; R50.9 Fever, unspecified; E78.5 Hyperlipidemia, unspecified; Z20.822 Contact with and (suspected) exposure to COVID-19; Z85.46 Personal history of malignant neoplasm of prostate; Z79.82 Long term (current) use of aspirin; Z83.3 Family history of diabetes mellitus; Z80.9 Family history of malignant neoplasm, unspecified
CPT/HCPCS: 93005; 87040 ×2; 87088; 85025 ×2; 87086; 80048; 36415; 83735 ×2; 84100; 85610; 80076; 84550; 83605; 87077; 87186; 84484; 80053; 84145; 83880; 87804 ×2; 71045; 73110; 93971; 94760; 96375; 96374; 99284; U0003; J1940; J3010; J3370 ×2; J0692 ×2; J7040; J2930; J2920; 81003; 81015